=== PATIENT | female | born 1975 | race Caucasian/White ===

== ENCOUNTER → 2016-11-09 | Outpatient (CLI) | payer OTHER ==
[~2016-11-09] MED LIST: PRENTAB26 PO; SYN100 PO
--- NOTE | 2016-11-10 12:42 | MAMMOGRAPHY REPORT ---
BILATERAL DIGITAL SCREENING MAMMOGRAM TOMOSYNTHESIS WITH CAD: 11/09/2016 CLINICAL HISTORY: Routine screening examination. TECHNIQUE: Breast tomosynthesis in addition to standard 2D mammography was performed. Current study was also evaluated with a Computer Aided Detection (CAD) system. COMPARISON: Comparison is made to exams dated: 11/05/2015 mammogram, 11/13/2015 ultrasound, 11/13/2015 mammogram, and 05/17/2016 mammogram - [facility]. BREAST COMPOSITION: There are scattered areas of fibroglandular density in both breasts. FINDINGS: There is stable asymmetry in the medial right breast. No new suspicious mass, architectur al distortion or cluster of microcalcifications is seen. IMPRESSION: ACR BI-RADS CATEGORY 1: NEGATIVE There is no mammographic evidence of malignancy. A 1 year screening mammogram is recommended. The p atient will receive written notification of the results. Approximately 10% of breast cancers are not detected with mammography. A negative mammographic repor t should not delay biopsy if a clinically suggestive mass is present. Malena Richards M.D. ay/:11/09/2016 19:02:14 Slot Machine Repairer: Daisy ELLISON(R)(M), [facility] letter sent: Normal 1/2 BI-RADS Code: ACR BI-RADS Category 1: Negative
== END | disposition home or self-care (01) ==
LOC: C.MAMM 08:39
PROVIDERS: ATTEND Family Medicine
DX: Z12.31 Encounter for screening mammogram for malignant neoplasm of breast (principal)

== ENCOUNTER → 2017-08-05 | Outpatient (CLI) | payer OTHER ==
[2017-08-05 12:35] LABS: BLOOD UREA NITROGEN 16 mg/dl (7-18); BUN/CREATININE RATIO 22.6 (10-20); CALCIUM 8.7 mg/dl (8.5-10.1); CARBON DIOXIDE 24 mmol/L (21-32); CHLORIDE 105 mmol/L (98-107); GLUCOSE 87 mg/dl (70-99); POTASSIUM 3.6 mmol/L (3.5-5.1); SODIUM 138 mmol/L (136-145)
[2017-08-05 12:37] LABS: ESTIMATED AVERAGE GLUCOSE 100 mg/dl; HA1C FLAG Normal (Normal)
[2017-08-05 12:46] LABS: CHOLESTEROL 155 mg/dl (0-200); CHOLESTEROL/HDL RATIO 3.6; HDL CHOLESTEROL 43 mg/dl; LDL CHOLESTEROL CALCULATED 101 mg/dl; TRIGLYCERIDES 55 mg/dl (0-150); VERY LOW DENSITY LIPOPROT CALC 11 mg/dl
== END | disposition home or self-care (01) ==
LOC: C.LABBFT 08:50
PROVIDERS: ATTEND Family Medicine
DX: E03.9 Hypothyroidism, unspecified (principal); E78.1 Pure hyperglyceridemia

== ENCOUNTER → 2017-11-07 | Outpatient (CLI) | payer OTHER ==
--- NOTE | 2017-11-07 09:28 | DIAGNOSTIC IMAGING REPORT ---
L-SPINE MIN 4 VIEWS ROUTINE CLINICAL HISTORY: Left hip pain. Sacroiliac joint pain. COMPARISON: None FINDINGS: Note is made of mild rightward curvature of the lumbar spine. There is slight anterolisthesis of L4 and L5. No fracture or suspicious lesion is identified. There is mild multilevel facet arthrosis with multilevel endplate osteophytosis. There is minimal disc space narrowing at several levels. IMPRESSION: 1. No acute lumbar spine fracture or subluxation. 2. Minimal rightward curvature of the lumbar spine. 3. Mild multilevel degenerative disc disease and mild to moderate facet arthrosis of the lumbar spine. Electronically signed by: Vidal Moralez M.D. 11/07/2017 9:27 AM Dictated Date/Time: 11/07/2017 9:26 AM
--- NOTE | 2017-11-07 09:29 | DIAGNOSTIC IMAGING REPORT ---
SI JOINTS 3 OR MORE VIEWS CLINICAL HISTORY: Sacroiliac joint pain. COMPARISON STUDY: No previous studies for comparison. FINDINGS: The sacroiliac joints are intact. There is no evidence for ankylosis. No fracture or suspicious lesion is identified. There is mild osteoarthritis of the bilateral sacroiliac joints. 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 Electronically signed by: Vidal Moralez M.D. 11/07/2017 9:28 AM Dictated Date/Time: 11/07/2017 9:27 AM
--- NOTE | 2017-11-07 09:30 | DIAGNOSTIC IMAGING REPORT ---
L HIP UNILATERAL 2 VIEWS CLINICAL HISTORY: Left hip pain. COMPARISON: None FINDINGS: Alignment of the left hip is anatomic. There is no fracture or suspicious lesion. Joint space is preserved. There is mild osteophytosis of the left hip. A phlebolith within the left hemipelvis is incidentally noted. There is no evidence for avascular necrosis. IMPRESSION: 1. No acute fracture. 2. Preserved left hip joint space with minimal osteophytosis. Electronically signed by: Vidal Moralez M.D. 11/07/2017 9:29 AM Dictated Date/Time: 11/07/2017 9:28 AM
== END | disposition home or self-care (01) ==
LOC: C.RAD 08:55
PROVIDERS: ATTEND Family Medicine
DX: R26.9 Unspecified abnormalities of gait and mobility (principal); M53.3 Sacrococcygeal disorders, not elsewhere classified

== ENCOUNTER → 2017-11-11 | Outpatient (CLI) | payer OTHER ==
--- NOTE | 2017-11-14 07:33 | MAMMOGRAPHY REPORT ---
BILATERAL DIGITAL SCREENING MAMMOGRAM TOMOSYNTHESIS WITH CAD: 11/11/2017 CLINICAL HISTORY: Routine screening. Patient has no complaints. TECHNIQUE: Breast tomosynthesis in addition to standard 2D mammography was performed. Current study was also evaluated with a Computer Aided Detection (CAD) system. COMPARISON: Comparison is made to exams dated: 11/09/2016 mammogram, 05/17/2016 mammogram, 11/13/2015 m ammogram, 11/13/2015 ultrasound, and 11/05/2015 mammogram - [facility]. BREAST COMPOSITION: There are scattered areas of fibroglandular density in both breasts. FINDINGS: No suspicious masses, calcifications, or areas of architectural distortion are noted in ei ther breast. There has been no significant interval change compared to prior exams. IMPRESSION: ACR BI-RADS CATEGORY 1: NEGATIVE There is no mammographic evidence of malignancy. A 1 year screening mammogram is recommended. The pa tient will receive written notification of the results. Approximately 10% of breast cancers are not detected with mammography. A negative mammographic report should not delay biopsy if a clinically suggestive mass is present. Leonie Montes M.D. /:11/11/2017 15:21:26 Sales Record Clerk: Dian Cortes, M, [facility] letter sent: Normal 1/2 BI-RADS Code: ACR BI-RADS Category 1: Negative
== END | disposition home or self-care (01) ==
LOC: C.MAMM 08:46
PROVIDERS: ATTEND Family Medicine
DX: Z12.31 Encounter for screening mammogram for malignant neoplasm of breast (principal)

== ENCOUNTER 2020-04-15 08:16 | Observation (INO) ==
[2020-04-15] MEDS ORDERED: HYDROmorphone INJ 0.5 MG/0.5 ML SYR IV STA (08:34)
[2020-04-15] MEDS ORDERED: ONDANSETRON INJ 2 MG/ML 2 ML VIAL IV STA (08:34)
[2020-04-15] MEDS ORDERED: SODIUM CHLORIDE 0.9% 1000ML 1,000 ML IV SCH (08:45)
[2020-04-15 09:05] LABS: Hematocrit (blood only) 29.4 % (37-47); Hemoglobin 8.3 g/dL (12.0-16.0); Mean Corpuscular Hemoglobin 18.6 pg (25-34); Mean Corpuscular Hgb Conc 28.2 g/dL (32-36); Mean Corpuscular Volume 65.9 fL (80-100); Mean Platelet Volume 9.3 fL (7.4-10.4); Platelet Count 309 K/uL (130-400); RDW Coefficient of Variation 18.8 % (11.5-14.5); RDW Standard Deviation 44.5 fL (36.4-46.3); Red Blood Count 4.46 M/uL (4.2-5.4); White Blood Count 9.11 K/uL (4.8-10.8)
[2020-04-15 09:16] LABS: Anisocytosis Present; Basophils # (auto) 0.01 K/uL (0-0.2); Basophils % (auto) 0.1 %; Eosinophils # (auto) 0.01 K/uL (0-0.5); Eosinophils % (auto) 0.1 %; Hypochromasia Present; Immature Granulocytes # (auto) 0.03 K/uL (0.00-0.02); Immature Granulocytes % (auto) 0.3 %; Lymphocytes # (auto) 1.38 K/uL (1.2-3.4); Lymphocytes % (auto) 15.1 %; Microcytosis Present; Monocytes # (auto) 0.28 K/uL (0.11-0.59); Monocytes % (auto) 3.1 %; Neutrophils % (auto) 81.3 %
[2020-04-15 09:22] LABS: Albumin Level 3.8 gm/dl (3.4-5.0); BUN Creatinine Ratio 15.5 (10-20); Calcium 9.1 mg/dl (8.5-10.1); Creatinine Clr Calc Pharmacy 96.3 ml/min; Est GFR (African American) 87.8; Est GFR (Non-African American) 75.7; Potassium 3.6 mmol/L (3.5-5.1)
[2020-04-15 09:25] LABS: Bilirubin,Total 0.4 mg/dl (0.2-1); Globulin 3.9 gm/dl (2.5-4.0); Total Protein 7.7 gm/dl (6.4-8.2)
[2020-04-15 10:22] LABS: Appearance Urine Clear (Clear); Bacteria Urine Automated Negative (Negative); Bilirubin Urine Negative (Negative); Blood Urine 1+ (Negative); Color Urine Yellow; Glucose Urine UA Negative (Negative); Ketones Urine Negative (Negative); Leukocyte Esterase Urine Negative (Negative); Nitrite Urine Negative (Negative); Protein Urine Negative (Negative); RBC Urine Automated 0-4 /hpf (0-4); Urobilinogen Urine Negative (Negative); pH Urine 5.5 (4.5-7.5)
--- NOTE | 2020-04-15 10:40 | History & Physical Report ---
Date of Service April 15, 2020 Assessment & Plan (1) Hydronephrosis: Patient presented to the emergency department yesterday and was discharged home with oxycodone and instructed to increase fluids Patient presents back today with evidence of hydronephrosis Pain was rated 6 out of 10 on admission. Currently is 1 out of 10 Instructed patient to strain all urine Will place urology consult Normal saline with 20 mEq of potassium chloride at 125 ml/hr Continue oxycodone for pain (2) Nephrolithiasis: Identified with CT abdomen pelvis yesterday KUB is currently pending Strain all urine No indication for antibiotics at this time (3) Anemia: Patient had heavy menses last week Is not aware of any history of anemia No history of gastric bypass No active bleeding We will check serum iron, ferritin, transferrin, and TIBC Check repeat H&H at 4:00 this afternoon then daily CBC Start patient on multivitamin with minerals (4) Acute hypokalemia: Potassium level yesterday was 3.1 Today in the ER is 3.6 Will replete with normal saline solution with 20 mEq of potassium chloride at 125 mL/h Daily labs Check a magnesium level Patient did have some vomiting this morning but no vomiting prior and no diarrhea. (5) Bradycardia: Patient with a current rate of 60 bpm No chest pain or tightness noted that heart rate yesterday in the ED was as low as 38 No history of cardiac disease or previous bradycardia Unaware of arrhythmias or ectopy Will place on telemetry on the MedSurg unit and follow Is not on any beta-blockers or other agonist medications (6) Hypothyroidism: Continue home dose of 100 mcg daily of levothyroxine Check a TSH Continue outpatient management (7) Hyperglycemia: No history of diabetes mellitus Patient is obese with a BMI of 35.6 kg/m Random glucose yesterday was in the 140s. Today's random glucose is 119 Most recent hemoglobin A1c was July 2017 at 5.1 Check a repeat hemoglobin A1c with today's labs (8) DVT prophylaxis: No chemical DVT prophylaxis secondary to anemia and possible procedure for nephrolithiasis Ambulate as tolerated Encourage ambulation in the hallways We will order LIYA ni and SCDs History of Present Illness Primary Care Provider: Harper Tolentino MD Attending: Dr. Bari Hudson This is a 44-year-old female with a history of hypothyroidism and obesity. She presented yesterday for flank pain and was found to have microscopic hematuria as well as hydronephrosis and a distal 4 mm right-sided kidney stone. She was discharged home on oxycodone and instructed to take an additional fluids. Today she was sitting at her desk working and has sudden and acute pain. Her brought her back to the emergency department where she was found to have 6/10 pain. She denies any fever or chills. She has no macroscopic hematuria. The pain is intermittent and sharp when it occurs. This morning resulted in nausea and vomiting of what sounds like 3 to 400 mL's. There is no evidence of hematemesis and the patient had no identified aspiration. Patient states that she has no history of kidney stones in the past. Her only significant past medical history is with the hypothyroidism. The patient does follow with Dr. Tolentino of the [facility]. Of note, her states that yesterday in the emergency department she had bradycardia with a rate as low as 38 bpm. The patient has no chest pain or tightness. She has no evidence of arrhythmia or ectopy. She denies any previous history of heart disease or hypertension. She has no history of echocardiogram or other cardiac work-up. The patient has no other acute complaints. Allergies Allergy/AdvReac Type Severity Reaction Status Date / Time Sulfa (Sulfonamide Allergy Intermediate HIVES Verified 04/15/20 09:02 Antibiotics) Home Medications Home Medications Medication Instructions Recorded Confirmed Type oxycodone 5 mg PO Q4H PRN #15 tab 04/14/20 04/15/20 Rx levothyroxine 100 mcg PO QAM 04/15/20 04/15/20 History acetaminophen 650 mg PO Q4H PRN #30 tab 04/16/20 Rx tamsulosin 0.4 mg PO HS #30 cap 04/16/20 Rx Past Med/Surg History Medical History Hypothyroidism Surgical History S/P D&C (status post dilation and curettage) S/P tonsillectomy Family History Denies family history of Ovarian cancer Prostate cancer Myocardial infarction Breast cancer Colorectal cancer Social History Smoking Status: Never smoker Hx Alcohol Use: Yes Hx Substance Use: No Preferred Language: Uzbek Communication Ability: Effective Visual Impairment: No Limitations Hearing Ability: Normal Vocational Case Manager Required: No Beliefs That Will Affect Care: None marital status: Current Living Situation: Spouse current occupational status: employed current occupation: [employer] Work[employer] Other Information That Helps Us Care for You: No Feels Safe at Home: Yes Safety Concerns: Feels Safe At This Time Childhood Exposure to Second-Hand Smoke: Yes Dental Care, Regularly: No Physical Activity Frequency: Daily Seatbelt Use: always Sunscreen Use: Yes Review of Systems Review of Systems: All systems reviewed & are unremarkable except as noted in HPI & below Physical Exam Physical Exam: GENERAL : No acute distress. Pleasant. No conversational dyspnea EYES: No icterus, gaze conjugate NOSE: No evidence of epistaxis MOUTH: No lesions or candidiasis NECK: Supple LUNGS: CTA B/L, no wheezes, rales or rhonchi HEART: Regular, rate controlled ABDOMEN: Soft, ND, BS Present. Some tenderness with deep palpation on the right side and in the flank. BACK: Right-sided CVA tenderness EXTREMITIES: No LE edema, pedal pulses intact NEURO: A&OX3 Results & Data Results & Data ([facility]) Vital Signs (Past 12 Hours) Vital Signs Temp Pulse Pulse Resp BP BP Pulse Ox 04/15/20 09:58 69 18 120/67 96 04/15/20 09:00 78 18 119/83 99 04/15/20 08:27 36.9 C 86 16 151/89 H 100 Laboratory Results 04/15/20 08:40 04/15/20 08:40 Diagnostic Findings KUB CLINICAL HISTORY: Right side stone COMPARISON STUDY: CT of the abdomen and pelvis April 14, 2020. FINDINGS: A 3 mm x 2 mm right ureterovesical junction calculus is unchanged in position since CT of April 14, 2020. No additional urinary calculi identified. IMPRESSION: No change in position of a 3 mm x 2 mm right ureterovesical junction calculus. ACT 112: Negative or not required by law. Electronically signed by: Vidal Moralez M.D. 04/15/2020 10:37 AM Code Status & VTE Plan Code Status Level 1 full code VTE Prophylaxis Plan VTE Prophylaxis will be ordered: Yes Supervising Physician Co-Signing Physician Notes I personally saw and examined the patient. I verified all ontiveros points and agree with LUCIA Calderon with the following exceptions and/or additions: 44-year-old female presents to the ER due to worsening right-sided flank pain with associated nausea and vomiting after recent diagnosis of right-sided kidney stone yesterday. O/E -right CVA tenderness, not pale appearing, conjunctiva does not appear pale, cap refill normal Right ureterolithiasis -appreciate urology consult, start tamsulosin, IV fluids, strain urine, n.p.o. after midnight for possible procedure tomorrow if stone not passed Microcytic anemia -suspect this is longstanding due to heavy periods. Recommend gynecology follow-up (she was already in the process of doing this). Does not appear to be symptomatic from this - therefore would not recommend blood transfusion. unless Hgb < 7. Given option of intravenous Venofer versus oral supplementation. Patient elected for oral supplementation. Discussed side effects of constipation. Will need follow-up with PCP for repeat CBC in approximately 4 weeks (sooner if short of breath, chest pain, fatigue). PG Care Time/CCT Total # of Minutes Spent Total Time Spent with Patient: Total time spent is greater than 50% in coordination of care (as documented) at patient's floor/unit and/or counseling patient: 65 minutes including discussion with Coding Level of Care Code 96687 Initial Inpt Care Lvl 3 Diagnoses Hydronephrosis Q62.11 Hydronephrosis type: with ureteropelvic junction obstruction Nephrolithiasis N20.0 Anemia D64.9 Anemia type: unspecified type Acute hypokalemia E87.6 Bradycardia R00.1 Hypothyroidism E03.9 Hypothyroidism type: acquired Hyperglycemia R73.9 DVT prophylaxis Z29.9 Time Spent (min) 65 (1) Hydronephrosis Hydronephrosis type: with ureteropelvic junction obstruction Qualified Code(s): Q62.11 - Congenital occlusion of ureteropelvic junction (2) Anemia Anemia type: unspecified type Qualified Code(s): D64.9 - Anemia, unspecified (3) Hypothyroidism Hypothyroidism type: acquired Qualified Code(s): E03.9 - Hypothyroidism, unspecified
[2020-04-15] MEDS ORDERED: ALUMINUM/MAGNESIUM SUSP 30 ML UDC PO PRN (11:37)
[2020-04-15] MEDS ORDERED: ONDANSETRON INJ 2 MG/ML 2 ML VIAL IV PRN (11:37)
[2020-04-15] MEDS ORDERED: OXYCODONE HCL IR 5 MG TAB (IMMEDIATE RELEASE) PO PRN (11:37)
[2020-04-15] MEDS ORDERED: POLYETHYLENE (MIRALAX) 17 GM PACK PO PRN (11:37)
[2020-04-15] MEDS ORDERED: MAGNESIUM HYDROXIDE SUSP 30 ML UDC PO PRN (11:37)
[2020-04-15] MEDS ORDERED: ACETAMINOPHEN 325 MG TAB PO PRN (11:37)
[2020-04-15] MEDS: NSS + 20MEQ KCL 20 MEQ/1,000 ML BAG IV SCH ×2 (12:28→20:37)
[2020-04-15] MEDS: FLINTSTONES COMPLETE CHEWABLE TAB PO SCH (12:28)
[2020-04-15 12:38] LABS: Estimated Average Glucose 114 mg/dl; Ferritin 2.3 ng/ml (8-388); Hemoglobin A1C 5.6 % (4.5-5.6); Magnesium 2.1 mg/dl (1.8-2.4); Thyroid Stimulating Hormone 3.4 uIu/ml (0.300-4.500)
[2020-04-15 12:58] LABS: INR 1.1 (0.9-1.1); Prothrombin Time 11.3 Seconds (9.0-12.0)
--- NOTE | 2020-04-15 16:41 | Emergency Department Note ---
History of Present Illness General Chief complaint: Flank Pain Stated complaint: KIDNEY FLANK PAIN Time Seen by Provider: 04/15/20 08:25 History of Present Illness Maximum Pain Intensity: 3 This is a 44-year-old female presenting to the emergency department for evaluation of ongoing right-sided flank pain. The patient was seen roughly 20 hours ago at this facility with this complaint. At that visit she was found to have an obstructing distal right ureteral calculi as well as nonspecific anemia. The patient was given pain medication here in the ER at her last visit, which significantly improved her pain, and she did want to go home on oral meds. She states that around 3 hours prior to arrival today she had a return of her intense pain. She did take her pain medication, but this has not provided her any relief. According to the nurse she was vomiting in triage before getting to her ER room. Her pain was a 9/10 earlier this morning, but it is now a 3/10. She has not had fevers or chills. Home Medications Home Medications Medication Instructions Recorded Confirmed Type oxycodone 5 mg PO Q4H PRN #15 tab 04/14/20 04/15/20 Rx levothyroxine 100 mcg PO QAM 04/15/20 04/15/20 History Allergies Allergy/AdvReac Type Severity Reaction Status Date / Time Sulfa (Sulfonamide Allergy Intermediate HIVES Verified 04/15/20 09:02 Antibiotics) Past Med/Surg History Medical History Hypothyroidism Surgical History S/P D&C (status post dilation and curettage) S/P tonsillectomy Family History Denies family history of Ovarian cancer Prostate cancer Myocardial infarction Breast cancer Colorectal cancer Social History Smoking Status: Never smoker Hx Alcohol Use: Yes Hx Substance Use: No Preferred Language: Surinamese Communication Ability: Effective Visual Impairment: No Limitations Hearing Ability: Normal 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 Beliefs That Will Affect Care: None marital status: Current Living Situation: Spouse current occupational status: employed 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 Other Information That Helps Us Care for You: No Feels Safe at Home: Yes Safety Concerns: Feels Safe At This Time Childhood Exposure to Second-Hand Smoke: Yes Dental Care, Regularly: No Physical Activity Frequency: Daily Seatbelt Use: always Sunscreen Use: Yes Review of Systems A total of 10 systems reviewed and were otherwise negative Physical Exam Vital Signs Vital Signs - 24 hr 04/15/20 08:27 04/15/20 09:00 04/15/20 09:58 Temperature 36.9 C Temperature Source Oral Pulse Rate 86 Pulse Rate [Left Finger] 78 69 Respiratory Rate 16 18 18 Respiratory Effort / Characteristics Non-Labored Respiratory Depth Normal Blood Pressure 151/89 H Blood Pressure [Left Arm] 119/83 120/67 Blood Pressure Mean 109 Blood Pressure Mean [Left Arm] 95 84 Pulse Oximetry 100 99 96 Oxygen Delivery Method Room Air Room Air Sepsis Recent Fever Within 48 Hours No Sepsis New/Unexplained Change in Mental Status N/A Sepsis Action Taken by Nursing No Action Required VITALS: Vitals are noted on the nurse's note and reviewed by myself. Vital signs stable. GENERAL: Well-developed, well-nourished, white female who appears in moderate discomfort HEAD: Normocephalic atraumatic. HEART: Regular rate and rhythm without murmurs gallops or rubs. LUNGS: Clear to auscultation bilaterally without wheezes, rales or rhonchi. No retractions or accessory muscle use. ABDOMEN: Positive normal bowel sounds x 4. Soft, nontender, without masses or organomegaly. No guarding or rebound tenderness. MUSCULOSKELETAL: No muscle atrophy, erythema, or edema noted. . NEURO: Patient was alert and oriented to person place and time. CN II through XII grossly intact. SKIN: The skin was without rashes, erythema, edema, or bruising. Capillary refill less than 2 seconds. Course Administered Medications Potassium Chloride/Sodium Chloride (Normal Saline W/20 Meq Kcl) 20 meq in 1,000 mls @ 125 mls/hr IV .Q8H [facility] Stop: 05/15/20 11:36 Last Admin: 04/15/20 12:28 Dose: 125 mls/hr Documented by: [id number] Multivitamins/Folic Acid/Vitamin C (Flintstones Complete Chewable Tab) 1 tab PO QAM DAPHNIE Stop: 05/15/20 11:36 Last Admin: 04/15/20 12:28 Dose: 1 tab Documented by: [id number] Discontinued Medications Hydromorphone HCl (Hydromorphone Inj 0.5 Mg/0.5 Ml Syr) 0.5 mg IV NOW STA Stop: 04/15/20 08:35 Last Admin: 04/15/20 08:41 Dose: 0.5 mg Documented by: [id number] Sodium Chloride (Nss 1000ml) 1,000 mls @ 999 mls/hr IV .Q1H1M DAPHNIE Stop: 04/15/20 09:45 Last Infusion: 04/15/20 09:49 Dose: 0 mls/hr Documented by: [id number] Admin: 04/15/20 08:41 Dose: 999 mls/hr Documented by: [id number] Ondansetron HCl (Ondansetron Inj 2 Mg/Ml 2 Ml Vial) 4 mg IV NOW STA Stop: 04/15/20 08:35 Last Admin: 04/15/20 08:41 Dose: 4 mg Documented by: [id number] Medical Decision Making Differential Diagnosis Differential diagnosis: Etiologies such as shingles, pyelonephritis/UTI, renal colic, appendicitis, diverticulitis, mesenteric ischemia, torsion, aortic pathology, infections, inflammatory bowel disease, bowel obstruction, PUD, biliary pathology, as well as others were entertained. Laboratory Data Result diagrams: 04/15/20 08:40 04/15/20 08:40 Lab Results 04/15/20 04/15/20 04/15/20 Range/Units 08:40 08:40 08:40 WBC 9.11 (4.8-10.8) K/uL RBC 4.46 (4.2-5.4) M/uL Hgb 8.3 L (12.0-16.0) g/dL Hct 29.4 L (37-47) % MCV 65.9 L (80-100) fL MCH 18.6 L (25-34) pg MCHC 28.2 L (32-36) g/dL RDW Std Deviation 44.5 (36.4-46.3) fL RDW Coeff of Delta 18.8 H (11.5-14.5) % Plt Count 309 (130-400) K/uL MPV 9.3 (7.4-10.4) fL Immature Gran % (Auto) 0.3 % Neut % (Auto) 81.3 % Lymph % (Auto) 15.1 % [place] % (Auto) 3.1 % Eos % (Auto) 0.1 % Baso % (Auto) 0.1 % Neut # (Auto) 7.40 H (1.4-6.5) K/uL Lymph # (Auto) 1.38 (1.2-3.4) K/uL [place] # (Auto) 0.28 (0.11-0.59) K/uL Eos # (Auto) 0.01 (0-0.5) K/uL Baso # (Auto) 0.01 (0-0.2) K/uL Immature Gran # (Auto) 0.03 H (0.00-0.02) K/uL Hypochromasia Present Anisocytosis Present Microcytosis Present Sodium 140 (136-145) mmol/L Potassium 3.6 D (3.5-5.1) mmol/L Chloride 109 H (98-107) mmol/L Carbon Dioxide 23 (21-32) mmol/L Anion Gap 9.0 (3-11) BUN 14 (7-18) mg/dl Creatinine 0.92 (0.6-1.2) mg/dl Est Cr Clr Drug Dosing 96.3 ml/min Est GFR ( Amer) 87.8 Est GFR (Non-Af Amer) 75.7 BUN/Creatinine Ratio 15.5 (10-20) Glucose 119 H (70-99) mg/dl Estimat Average Glucose 114 mg/dl Hemoglobin A1c 5.6 (4.5-5.6) % Calcium 9.1 (8.5-10.1) mg/dl Magnesium (1.8-2.4) mg/dl Iron (35-150) mcg/dl TIBC (250-450) mcg/dl Transferrin (200-360) mg/dl Ferritin (8-388) ng/ml Total Bilirubin 0.4 (0.2-1) mg/dl AST 14 L (15-37) U/L ALT 17 (12-78) U/L Alkaline Phosphatase 85 (45-117) U/L Total Protein 7.7 (6.4-8.2) gm/dl Albumin 3.8 (3.4-5.0) gm/dl Globulin 3.9 (2.5-4.0) gm/dl Albumin/Globulin Ratio 1.0 (0.9-2) TSH (0.300-4.500) uIu/ml Urine Color Urine Appearance (Clear) Urine pH (4.5-7.5) Ur Specific [place] (1.000-1.030) Urine Protein (Negative) Urine Glucose (UA) (Negative) Urine Ketones (Negative) Urine Blood (Negative) Urine Nitrite (Negative) Urine Bilirubin (Negative) Urine Urobilinogen (Negative) Ur Leukocyte Esterase (Negative) Urine WBC (Auto) (0-5) /hpf Urine RBC (Auto) (0-4) /hpf U Hyaline Cast (Auto) (0-5) /lpf U Epithel Cells (Auto) (0-5) /lpf Urine Bacteria (Auto) (Negative) 04/15/20 04/15/20 Range/Units 08:40 09:30 WBC (4.8-10.8) K/uL RBC (4.2-5.4) M/uL Hgb (12.0-16.0) g/dL Hct (37-47) % MCV (80-100) fL MCH (25-34) pg MCHC (32-36) g/dL RDW Std Deviation (36.4-46.3) fL RDW Coeff of Delta (11.5-14.5) % Plt Count (130-400) K/uL MPV (7.4-10.4) fL Immature Gran % (Auto) % Neut % (Auto) % Lymph % (Auto) % [place] % (Auto) % Eos % (Auto) % Baso % (Auto) % Neut # (Auto) (1.4-6.5) K/uL Lymph # (Auto) (1.2-3.4) K/uL [place] # (Auto) (0.11-0.59) K/uL Eos # (Auto) (0-0.5) K/uL Baso # (Auto) (0-0.2) K/uL Immature Gran # (Auto) (0.00-0.02) K/uL Hypochromasia Anisocytosis Microcytosis Sodium (136-145) mmol/L Potassium (3.5-5.1) mmol/L Chloride (98-107) mmol/L Carbon Dioxide (21-32) mmol/L Anion Gap (3-11) BUN (7-18) mg/dl Creatinine (0.6-1.2) mg/dl Est Cr Clr Drug Dosing ml/min Est GFR ( Amer) Est GFR (Non-Af Amer) BUN/Creatinine Ratio (10-20) Glucose (70-99) mg/dl Estimat Average Glucose mg/dl Hemoglobin A1c (4.5-5.6) % Calcium (8.5-10.1) mg/dl Magnesium 2.1 (1.8-2.4) mg/dl Iron 13 L (35-150) mcg/dl TIBC 480 H (250-450) mcg/dl Transferrin 373 H (200-360) mg/dl Ferritin 2.3 L (8-388) ng/ml Total Bilirubin (0.2-1) mg/dl AST (15-37) U/L ALT (12-78) U/L Alkaline Phosphatase (45-117) U/L Total Protein (6.4-8.2) gm/dl Albumin (3.4-5.0) gm/dl Globulin (2.5-4.0) gm/dl Albumin/Globulin Ratio (0.9-2) TSH 3.400 (0.300-4.500) uIu/ml Urine Color Yellow Urine Appearance Clear (Clear) Urine pH 5.5 (4.5-7.5) Ur Specific [place] 1.010 (1.000-1.030) Urine Protein Negative (Negative) Urine Glucose (UA) Negative (Negative) Urine Ketones Negative (Negative) Urine Blood 1+ H (Negative) Urine Nitrite Negative (Negative) Urine Bilirubin Negative (Negative) Urine Urobilinogen Negative (Negative) Ur Leukocyte Esterase Negative (Negative) Urine WBC (Auto) 1-5 (0-5) /hpf Urine RBC (Auto) 0-4 (0-4) /hpf U Hyaline Cast (Auto) 1-5 (0-5) /lpf U Epithel Cells (Auto) 10-20 H (0-5) /lpf Urine Bacteria (Auto) Negative (Negative) Imaging Data Radiologist's Impression: KUB CLINICAL HISTORY: Right side stone COMPARISON STUDY: CT of the abdomen and pelvis April 14, 2020. FINDINGS: A 3 mm x 2 mm right ureterovesical junction calculus is unchanged in position since CT of April 14, 2020. No additional urinary calculi identified. IMPRESSION: No change in position of a 3 mm x 2 mm right ureterovesical junction calculus. MDM Narrative Physical exam and history were performed. Nursing notes, EMR, and Medication List were personally reviewed. Patient appears to have return of her right flank pain in the context of a known kidney stone. IV access was established and labs were obtained. She was hydra lo with normal saline and given IV Dilaudid and IV Zofran for comfort. KUB was performed. Patient does not have a significantly elevated white blood cell count. She remains anemic, and her indices may suggest iron deficiency or other similar process. She evidently does eat meat, but very infrequently. Lipase and transaminases are not diagnostic. KUB was performed and reviewed by myself and radiology. KUB shows no change in the position of her stone. Overall the patient does not seem well for discharge home. She does have a distal stone that was obstructing on CT yesterday. She did attempt at home treatment, but this does not seem to have done well for her. The case was discussed with the on-call hospitalist team who agreed to evaluate her here in the ER. Please see their dictation for further patient course, plan, and disposition. The chart was completed utilizing [employer] Speech Voice Recognition Software. Grammatical errors, random word insertions, pronoun errors, and incomplete sentences are an occasional consequence of this system due to software limitations, ambient noise, and hardware issues. Any formal questions or concerns about the content, text, or information contained within the body of this dictation should be directly addressed to the provider for clarification. . Impression & Plan Right distal ureteral calculus, Anemia Discharge Plan Visit Data Chief Complaint: Flank Pain Stated Complaint: KIDNEY FLANK PAIN ED Provider: Johnathan Hernandez ED Midlevel Provider: Azeem Pradhan Discharge Problem: Right distal ureteral calculus, Anemia Patient Disposition: Admitted As Inpatient Discharge Instructions Interventions: ED Discharge Assessment Last Done: 04/15/20 11:17
[2020-04-15 17:20] LABS: Hematocrit (blood only) 26.3 % (37-47); Hemoglobin 7.5 g/dL (12.0-16.0)
--- NOTE | 2020-04-15 18:05 | Urology Consultation ---
Date of Consultation April 15, 2020 Assessment & Plan (1) Nephrolithiasis: Assessment Renal colic secondary to a 2.5 to 3 mm right ureterovesical junction stone Currently patient's pain is controlled she has no fever or chills no signs of sepsis Stone is small enough that that there is a high likelihood she will pass it on her own Continue with IV hydration pain medication as needed Check KUB in the morning We will make n.p.o. after midnight in case the stone needs to be removed Does understand if she gets a fever or chills or any signs of sepsis she would need emergent stenting tonight. History of Present Illness Attending Physician: Bari Hudson MD History of Present Illness Is a 44-year-old white female admitted through the emergency room with right renal colic secondary to a 2.5 to 3 mm right ureterovesical junction stone. She is had no fevers or chills. She did have some nausea and vomiting while in the ER that has subsided. She was able to tolerate dinner tonight. Currently her pain is controlled. Allergies Allergy/AdvReac Type Severity Reaction Status Date / Time Sulfa (Sulfonamide Allergy Intermediate HIVES Verified 04/15/20 09:02 Antibiotics) Home Medications Home Medications Medication Instructions Recorded Confirmed Type oxycodone 5 mg PO Q4H PRN #15 tab 04/14/20 04/15/20 Rx levothyroxine 100 mcg PO QAM 04/15/20 04/15/20 History Patient History Medical History Hypothyroidism Surgical History S/P D&C (status post dilation and curettage) S/P tonsillectomy Family History Denies family history of Ovarian cancer Prostate cancer Myocardial infarction Breast cancer Colorectal cancer Social History Smoking Status: Never smoker Hx Alcohol Use: Yes Hx Substance Use: No Preferred Language: Welsh Communication Ability: Effective Visual Impairment: No Limitations Hearing Ability: Normal 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 Beliefs That Will Affect Care: None marital status: Current Living Situation: Spouse current occupational status: employed 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 Other Information That Helps Us Care for You: No Feels Safe at Home: Yes Safety Concerns: Feels Safe At This Time Childhood Exposure to Second-Hand Smoke: Yes Dental Care, Regularly: No Physical Activity Frequency: Daily Seatbelt Use: always Sunscreen Use: Yes Physical Exam Physical Exam: Constitutional Well-developed well-nourished In no acute distress, Healthy appearing Neuro/psych Alert and oriented x3 Normal mood Normal affect Normal coordination Skin Normal color Normal turgor No rashes Warm and Dry Neck Normal visual inspection Pulmonary Clear to auscultation Normal rhythm and effort No respiratory distress No audible wheezes Able to speak in complete sentences Cardiac Rate and rhythm No peripheral edema Results & Data ([facility]) Vital Signs (Past 12 Hours) Vital Signs Temp Pulse Pulse Resp BP BP BP 04/15/20 15:46 36.9 C 54 L 20 124/81 04/15/20 15:00 107 H 04/15/20 11:37 36.7 C 78 16 124/70 04/15/20 11:09 71 16 122/74 04/15/20 09:58 69 18 120/67 04/15/20 09:00 78 18 119/83 04/15/20 08:27 36.9 C 86 16 151/89 H Pulse Ox 04/15/20 15:46 95 04/15/20 15:00 04/15/20 11:37 99 04/15/20 11:09 97 04/15/20 09:58 96 04/15/20 09:00 99 04/15/20 08:27 100 PG Care Time/CCT Total # of Minutes Spent Total Time Spent with Patient: Total time spent is greater than 50% in coordin ation of care (as documented) at patient's floor/unit and/or counseling patient: Coding Level of Care Code 27788 Inpt Consult Level 3 Diagnoses Nephrolithiasis N20.0
[2020-04-15] MEDS ORDERED: TAMSULOSIN HCL 0.4 MG CAP PO SCH (21:00)
[2020-04-16] MEDS: NSS + 20MEQ KCL 20 MEQ/1,000 ML BAG IV SCH (04:28)
--- NOTE | 2020-04-16 05:52 | Electrocardiogram Report ---
Test Reason : Blood Pressure : / mmHG Vent. Rate : 064 BPM Atrial Rate : 064 BPM P-R Int : 158 ms QRS Dur : 090 ms QT Int : 444 ms P-R-T Axes : 038 002 022 degrees QTc Int : 458 ms Sinus rhythm with marked sinus arrhythmia Low voltage QRS Borderline ECG No previous ECGs available Confirmed by Kirt Zuniga ([id number]) on 04/16/2020 5:52:33 AM Referred By: REFERRED SELF Confirmed By:Kirt Zuniga
[2020-04-16] MEDS ORDERED: LEVOTHYROXINE SODIUM 100 MCG TABLET PO SCH (06:30)
[2020-04-16] MEDS: FLINTSTONES COMPLETE CHEWABLE TAB PO SCH (07:15)
[2020-04-16 07:25] LABS: Hematocrit (blood only) 27.4 % (37-47); Hemoglobin 7.7 g/dL (12.0-16.0); Mean Corpuscular Hemoglobin 18.7 pg (25-34); Mean Corpuscular Hgb Conc 28.1 g/dL (32-36); Mean Corpuscular Volume 66.5 fL (80-100); Mean Platelet Volume 9.1 fL (7.4-10.4); Platelet Count 290 K/uL (130-400); RDW Coefficient of Variation 18.9 % (11.5-14.5); RDW Standard Deviation 45.5 fL (36.4-46.3); Red Blood Count 4.12 M/uL (4.2-5.4)
[2020-04-16 07:58] LABS: BUN Creatinine Ratio 11.7 (10-20); Calcium 8.5 mg/dl (8.5-10.1); Creatinine Clr Calc Pharmacy 124.2 ml/min; Est GFR (Non-African American) 101.9; Potassium 3.6 mmol/L (3.5-5.1)
[2020-04-16] MEDS ORDERED: FERROUS SULFATE 325 MG TAB PO SCH (08:00)
[2020-04-16 08:01] LABS: Basophils # (auto) 0.02 K/uL (0-0.2); Basophils % (auto) 0.3 %; Eosinophils # (auto) 0.09 K/uL (0-0.5); Eosinophils % (auto) 1.3 %; Hypochromasia Present; Immature Granulocytes # (auto) 0.02 K/uL (0.00-0.02); Immature Granulocytes % (auto) 0.3 %; Lymphocytes # (auto) 2.75 K/uL (1.2-3.4); Lymphocytes % (auto) 38.7 %; Microcytosis Present; Monocytes # (auto) 0.37 K/uL (0.11-0.59); Monocytes % (auto) 5.2 %; Neutrophils # (auto) 3.85 K/uL (1.4-6.5); Neutrophils % (auto) 54.2 %
--- NOTE | 2020-04-16 09:50 | Urology Progress Note ---
Date of Service April 16, 2020 Assessment & Plan Admission and Anticipated Discharge Date Admission Date: April 15, 2020 Subjective Hospital day #1 patient's afebrile vital signs are stable she is no longer having any flank pain she tells me that she only had 1 dose of pain medication when she came to the ER yesterday and has not had any since. The flank pain she was experiencing in the ER has subsided. She was having some crampy type feelings in the bladder area that is also subsided she is been voiding without problem she has not caught the stone yet I reviewed her KUB from today it is questionable whether the stone is still there Results & Data ([facility]) Vital Signs (Past 12 Hours) Vital Signs Temp Pulse Pulse Resp BP BP Pulse Ox 04/16/20 07:36 37.1 C 85 22 136/79 96 04/16/20 03:48 37 C 88 20 114/71 96 04/15/20 23:00 36.7 C 82 18 125/84 97 04/15/20 22:20 81 PG Care Time/CCT Total # of Minutes Spent Total Time Spent with Patient: Total time spent is greater than 50% in coordination of care (as documented) at patient's floor/unit and/or counseling patient: Coding
--- NOTE | 2020-04-16 09:55 | Urology Progress Note ---
Date of Service April 16, 2020 Assessment & Plan Admission and Anticipated Discharge Date Admission Date: April 15, 2020 Assessment distal right ureteral calculus Discussed options including Trial of passage Ureteroscopy laser lithotripsy stent Patient really does not want to have surgery if she does not need it stone is small enough to pass on its own and she is no longer having any pain and she has had no fevers chills or signs of sepsis At this point I think she can try passing the stone on her own She should strain her urine at home Take her pain medication as needed Follow-up in our office in a week with another KUB unless she catches the stone Subjective Hospital day #1 right renal colic Patient is afebrile vital signs are stable She is no longer having any flank pain She tells me she only took 1 dose of pain medication while in the ER yesterday and has had none since She was having some crampiness in the bladder area but that is also subsided She is had no nausea or vomiting White count is 7 creatinine is 0.7 KUB from today not 100% sure that I still see the stone has not caught anything yet The stone is small enough to pass on its own Physical Exam Physical Exam: CONSTITUTIONAL Well-developed well-nourished female in no acute distress NEURO/PSYCH Alert and oriented Normal mood and affect Normal coordination SKIN Normal color and turgor No rashes NECK Normal visual inspection PULMONARY Normal rhythm and effort No respiratory distress CARDIAC No peripheral edema LYMPHATIC Femoral and inguinal lymph nodes not palpable ABDOMEN Soft nontender No hepatosplenomegaly No masses No hernias Results & Data ([facility]) Vital Signs (Past 12 Hours) Vital Signs Temp Pulse Pulse Resp BP BP Pulse Ox 04/16/20 07:36 37.1 C 85 22 136/79 96 04/16/20 03:48 37 C 88 20 114/71 96 04/15/20 23:00 36.7 C 82 18 125/84 97 04/15/20 22:20 81 PG Care Time/CCT Total # of Minutes Spent Total Time Spent with Patient: Total time spent is greater than 50% in coordination of care (as documented) at patient's floor/unit and/or counseling patient: Coding Level of Care Code 01725 Subseq Hosp Care Lvl 2
--- NOTE | 2020-04-16 12:45 | XRay Report ---
KUB CLINICAL HISTORY: Right ureteral stone. FINDINGS: 2 AP supine abdominal radiographs are compared to study dated 04/15/2020 and correlated with abdominal CT dated 04/14/2020. There is a nonobstructed abdominal bowel gas pattern. Moderate fecal re tention is noted in the right colon. A 3 mm calculus at the right vesicoureteral junction is unchange d in position from yesterday. A phlebolith is noted in left hemipelvis. No additional calcifications are seen projecting over either kidney. The bony structures appear intact. IMPRESSION: Unchanged appearance of a 3 mm calculus at the right vesicoureteral junction as compared to yesterday. Electronically signed by: Matias Klein M.D. 04/16/2020 12:44 PM
--- NOTE | 2020-04-17 10:27 | Discharge Summary ---
Date of Service April 16, 2020 Admission HPI Per Admitting Provider Attending: Dr. Bari Hudson This is a 44-year-old female with a history of hypothyroidism and obesity. She presented yesterday for flank pain and was found to have microscopic hematuria as well as hydronephrosis and a distal 4 mm right-sided kidney stone. She was discharged home on oxycodone and instructed to take an additional fluids. Today she was sitting at her desk working and has sudden and acute pain. Her brought her back to the emergency department where she was found to have 6/10 pain. She denies any fever or chills. She has no macroscopic hematuria. The pain is intermittent and sharp when it occurs. This morning resulted in nausea and vomiting of what sounds like 3 to 400 mL's. There is no evidence of hematemesis and the patient had no identified aspiration. Patient states that she has no history of kidney stones in the past. Her only significant past medical history is with the hypothyroidism. The patient does follow with [place]. Tolent[place] [facility] [place] Of note, her states that yesterday in the emergency department she had bradycardia with a rate as low as 38 bpm. The patient has no chest pain or tightness. She has no evidence of arrhythmia or ectopy. She denies any previous history of heart disease or hypertension. She has no history of echocardiogram or other cardiac work-up. The patient has no other acute complaints. Principal Diagnosis nephrolithiasis Discharge Exam GENERAL : No acute distress. Pleasant. No conversational dyspnea EYES: No icterus, gaze conjugate NOSE: No evidence of epistaxis MOUTH: No lesions or candidiasis NECK: Supple LUNGS: CTA B/L, no wheezes, rales or rhonchi HEART: Regular, rate controlled ABDOMEN: Soft, ND, BS Present. No CVA tenderness BACK: Right-sided CVA tenderness EXTREMITIES: No LE edema, pedal pulses intact NEURO: A&OX3 Discharge Data Allergies Allergy/AdvReac Type Severity Reaction Status Date / Time Sulfa (Sulfonamide Allergy Intermediate HIVES Verified 04/17/20 08:45 Antibiotics) Consultations 04/15/20 09:01 ED Decision to Admit Stat 04/15/20 11:37 Consult Urology Routine Hospital Course (1) Hydronephrosis: Patient presented to the emergency department yesterday and was discharged home with oxycodone and instructed to increase fluids Patient presents back today with evidence of hydronephrosis Pain was rated 6 out of 10 on admission. Currently is 1 out of 10 Instructed patient to strain all urine Appreciate assessment from Urology: distal right ureteral calculus Discussed options including Trial of passage Ureteroscopy laser lithotripsy stent Patient really does not want to have surgery if she does not need it stone is small enough to pass on its own and she is no longer having any pain and she has had no fevers chills or signs of sepsis At this point I think she can try passing the stone on her own She should strain her urine at home Take her pain medication as needed Follow-up in our office in a week with another KUB unless she catches the stone (2) Nephrolithiasis: Identified with CT abdomen pelvis yesterday Strain all urine No indication for antibiotics at this time (3) Anemia: Patient had heavy menses last week Is not aware of any history of anemia No history of gastric bypass No active bleeding We will check serum iron, ferritin, transferrin, and TIBC Check repeat H&H at 4:00 this afternoon then daily CBC Start patient on multivitamin with minerals (4) Acute hypokalemia: resolved. (5) Bradycardia: Patient with a current rate of 60 bpm No chest pain or tightness noted that heart rate yesterday in the ED was as low as 38 No history of cardiac disease or previous bradycardia Unaware of arrhythmias or ectopy Will place on telemetry on the MedSurg unit and follow Is not on any beta-blockers or other agonist medications (6) Hypothyroidism: Continue home dose of 100 mcg daily of levothyroxine Check a TSH Continue outpatient management (7) Hyperglycemia: No history of diabetes mellitus Patient is obese with a BMI of 35.6 kg/m Random glucose yesterday was in the 140s. Today's random glucose is 119 Most recent hemoglobin A1c was July 2017 at 5.1 Check a repeat hemoglobin A1c with today's labs (8) DVT prophylaxis: No chemical DVT prophylaxis secondary to anemia and possible procedure for nephrolithiasis Ambulate as tolerated Encourage ambulation in the hallways (2) Nephrolithiasis: (3) Anemia: (4) Acute hypokalemia: (5) Bradycardia: (6) Hypothyroidism: (7) Hyperglycemia: (8) DVT prophylaxis: Total Time Total Time Spent Total Time Spent (In Minutes): 32 Total Time Includes: Examination of the Patient, Discharge Planning and Medication Reconciliation Discharge Plan Discharge Items Patient Disposition: Home - Self-Care Reason For Visit: RT HYDRONEPHROSIS Discharge Diagnosis: kidney stone Activity: Resume your previous activity Non-emergency contact: Primary Care Provider Call non-emergency contact if: you have any medication questions Follow-up/Referrals: Raul Collins MD [Physician] - (The office will call you and let you know when you have a follow up appt) Harper Tolentino MD [Primary Care Provider] - (Please call and schedule a follow up appt within 7-10 days) Diet: Regular Addtl Attending Provider Instructions: At this point I think she can try passing the stone on her own She should strain her urine at home Take her pain medication as needed Follow-up in Urology office in a week with another KUB unless she catches the stone Pending Studies at Discharge: No Stand-Alone Forms: My [employer], Smoking Cessation Medications and DC Order Prescriptions: Continued levothyroxine 100 mcg tablet 100 mcg PO QAM RF: 0 No Action acetaminophen [Tylenol Extra Strength] 500 mg Tablet 1,000 mg PO QID PRN (Reason: Pain) RF: 0 ferrous sulfate 325 mg (65 mg iron) Tablet,Delayed Release (Dr/Ec) 325 mg PO BIDM Qty: 30 RF: 0 Discharge Orders: Discharge Order (Routine); Ordered 04/16/20 Ordered By: Luis M De La Torre Admission Data Admit Date/Time: 04/15/20 10:49 Attending Provider: Luis M De La Torre Admit Provider: Bari Hudson Primary Care Provider: Harper Tolentino Other Providers: Raymon Martin ; Raul Collins Other Interventions: Discharge Summary Assessment (RN) Last Done: 04/16/20 11:35 Coding Level of Care Code 21076 OBS Care - Discharge Diagnoses Hydronephrosis Q62.11 Hydronephrosis type: with ureteropelvic junction obstruction Nephrolithiasis N20.0 Anemia D64.9 Acute hypokalemia E87.6 Bradycardia R00.1 Hypothyroidism E03.9 Hypothyroidism type: acquired Hyperglycemia R73.9 DVT prophylaxis Z29.9
--- NOTE | 2020-04-18 05:58 | Electrocardiogram Report ---
Test Reason : Blood Pressure : / mmHG Vent. Rate : 083 BPM Atrial Rate : 083 BPM P-R Int : 164 ms QRS Dur : 082 ms QT Int : 374 ms P-R-T Axes : 037 -05 024 degrees QTc Int : 439 ms Normal sinus rhythm with sinus arrhythmia Anterolateral infarct , age undetermined Nonspecific T wave abnormality Abnormal ECG When compared with ECG of 15-APR-2020 11:52, Anterior infarct is now Present Anterolateral infarct is now Present Nonspecific T wave abnormality now evident in Anterolateral leads Confirmed by Kirt Zuniga ([id number]) on 04/18/2020 5:57:53 AM Referred By: REFERRED SELF Confirmed By:Kirt Zuniga
== END 2020-04-16 12:24 | disposition home or self-care (01) ==
LOC: ED 08:16 → SUATTDRO 10:49 → 2N 10:49 → INTOOBSV 10:49 → 2N 11:17

== ENCOUNTER 2020-04-17 08:22 | Observation (INO) ==
[2020-04-17] MEDS ORDERED: ONDANSETRON INJ 2 MG/ML 2 ML VIAL IV STA (08:36)
[2020-04-17] MEDS ORDERED: HYDROmorphone INJ 0.5 MG/0.5 ML SYR IV STA ×2 (08:36→09:12)
[2020-04-17] MEDS ORDERED: SODIUM CHLORIDE 0.9% 1000ML 1,000 ML IV ONE (08:36)
[2020-04-17 09:06] LABS: Hematocrit (blood only) 29.1 % (37-47); Hemoglobin 8.4 g/dL (12.0-16.0); Mean Corpuscular Hemoglobin 18.9 pg (25-34); Mean Corpuscular Hgb Conc 28.9 g/dL (32-36); Mean Corpuscular Volume 65.5 fL (80-100); Mean Platelet Volume 9.2 fL (7.4-10.4); Platelet Count 319 K/uL (130-400); RDW Coefficient of Variation 18.6 % (11.5-14.5); RDW Standard Deviation 44.1 fL (36.4-46.3); Red Blood Count 4.44 M/uL (4.2-5.4); White Blood Count 10.98 K/uL (4.8-10.8)
[2020-04-17 09:19] LABS: Basophils # (auto) 0.02 K/uL (0-0.2); Basophils % (auto) 0.2 %; Eosinophils # (auto) 0.02 K/uL (0-0.5); Eosinophils % (auto) 0.2 %; Hypochromasia Present; Immature Granulocytes # (auto) 0.03 K/uL (0.00-0.02); Immature Granulocytes % (auto) 0.3 %; Lymphocytes # (auto) 1.62 K/uL (1.2-3.4); Lymphocytes % (auto) 14.8 %; Microcytosis Present; Monocytes # (auto) 0.43 K/uL (0.11-0.59); Monocytes % (auto) 3.9 %; Neutrophils # (auto) 8.86 K/uL (1.4-6.5); Neutrophils % (auto) 80.6 %; Ovalocytes 1+
[2020-04-17 09:20] LABS: BUN Creatinine Ratio 15.2 (10-20); Calcium 8.8 mg/dl (8.5-10.1); Creatinine Clr Calc Pharmacy 104.7 ml/min; Est GFR (African American) 96.6; Est GFR (Non-African American) 83.3; Potassium 3.4 mmol/L (3.5-5.1)
[2020-04-17 09:22] LABS: Bilirubin,Total 0.5 mg/dl (0.2-1); Globulin 3.9 gm/dl (2.5-4.0); Total Protein 7.9 gm/dl (6.4-8.2)
[2020-04-17 10:07] LABS: Appearance Urine Clear (Clear); Bacteria Urine Automated Negative (Negative); Bilirubin Urine Negative (Negative); Blood Urine Negative (Negative); Cast Urine Automated 0 /lpf (0-5); Color Urine Yellow; Epithelial Cell Urine Auto 20-30 /lpf (0-5); Glucose Urine UA Negative (Negative); Ketones Urine 1+ (Negative); Leukocyte Esterase Urine Trace (Negative); Nitrite Urine Negative (Negative); Protein Urine Negative (Negative); RBC Urine Automated 0-4 /hpf (0-4); Urobilinogen Urine Negative (Negative); pH Urine 8.5 (4.5-7.5)
--- NOTE | 2020-04-17 10:09 | XRay Report ---
KUB HISTORY: distal R ureteral stone, right flank pain COMPARISON: KUB 04/16/2020. FINDINGS: The bowel gas pattern is unremarkable. There are no dilated loops of small bowel to suggest an obstruction. Redemonstration of the 3 mm stone within the right ureterovesical junction junction . This is similar to the prior study. No additional ureteral calculi identified. The renal shadows ar e mostly obscured by overlying bowel gas. No pneumoperitoneum or pneumatosis. IMPRESSION: Unchanged appearance of the 3 mm calculus at the right ureterovesical junction. ACT 112: Negative or not required by law. Electronically signed by: Panda Watkins M.D. 04/17/2020 10:08 AM
[2020-04-17] MEDS ORDERED: HYDROmorphone INJ 0.5 MG/0.5 ML SYR IV PRN (10:17)
--- NOTE | 2020-04-17 10:34 | History & Physical Report ---
Date of Service April 17, 2020 History of Present Illness Primary Care Provider: Harper Tolentino MD Allergies Allergy/AdvReac Type Severity Reaction Status Date / Time Sulfa (Sulfonamide Allergy Intermediate HIVES Verified 04/17/20 08:45 Antibiotics) Home Medications Home Medications Medication Instructions Recorded Confirmed Type oxycodone 5 mg PO Q4H PRN #15 tab 04/14/20 04/17/20 Rx levothyroxine 100 mcg PO QAM 04/15/20 04/17/20 History tamsulosin 0.4 mg PO HS #30 cap 04/16/20 04/17/20 Rx acetaminophen [Tylenol Extra 1,000 mg PO QID PRN 04/17/20 04/17/20 History Strength] Past Med/Surg History Medical History (Updated 04/17/20 @ 00:03 by Sherlyn Pollard) Hypothyroidism Surgical History S/P D&C (status post dilation and curettage) S/P tonsillectomy Family History Denies family history of Ovarian cancer Prostate cancer Myocardial infarction Breast cancer Colorectal cancer Social History Smoking Status: Never smoker Hx Alcohol Use: Yes Hx Substance Use: No Preferred Language: Bengali Communication Ability: Effective Visual Impairment: No Limitations Hearing Ability: Normal 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 Beliefs That Will Affect Care: None marital status: Current Living Situation: Spouse current occupational status: employed 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 Feels Safe at Home: Yes Childhood Exposure to Second-Hand Smoke: Yes Dental Care, Regularly: No Physical Activity Frequency: Daily Seatbelt Use: always Sunscreen Use: Yes Results & Data Results & Data ([facility]) Vital Signs (Past 12 Hours) Vital Signs Temp Pulse Resp BP Pulse Ox 04/17/20 10:00 54 L 18 123/76 90 04/17/20 09:30 57 L 24 155/72 H 100 04/17/20 09:00 57 L 20 145/79 H 100 04/17/20 08:52 54 L 22 144/71 H 100 04/17/20 08:47 66 20 144/71 H 100 04/17/20 08:25 36.7 C 65 22 152/79 H 100 Code Status & VTE Plan VTE Prophylaxis Plan VTE Prophylaxis will be ordered: No PG Care Time/CCT Total # of Minutes Spent Total Time Spent with Patient: Total time spent is greater than 50% in coordination of care (as documented) at patient's floor/unit and/or counseling patient: Coding
--- NOTE | 2020-04-17 11:05 | History & Physical Report ---
Date of Service April 17, 2020 Assessment & Plan (1) Nephrolithiasis: Patient has a 3 mm obstructive stone She is received Dilaudid in the ED with some improvement of her pain Toradol will be ordered Patient is anticipated to go to the OR later today for placement of stent Continue supportive care Urology consult (2) Hypothyroidism: Continue home dose of levothyroxine at 100 mcg daily TSH on 04/15/2020 was 3.4 Further management as an outpatient (3) Anemia: Patient with heavy menses last week Ferrous sulfate ordered Follow daily labs No active bleeding Hemodynamically stable (4) Bradycardia: Patient with a current rate of 54 bpm I suspect this of this is her normal rate Would recommend outpatient follow-up with cardiology (5) DVT prophylaxis: No chemical prophylaxis due to probable surgery later today for stent placement Encourage ambulation as tolerated Anticipate discharge later today or tomorrow Please refer to Dr. Hudson's addendum for further recommendations. History of Present Illness Primary Care Provider: Harper Tolentino MD Attending: Dr. Hudson This is a 44-year-old female that was admitted on 04/15/2020 with ureteral obstruction with a 3 mm stone. She was admitted for pain control and concern for urosepsis. She did well during the course of her hospitalization and was discharged yesterday anticipating that her 3 mm stone would pass on its own. The patient states that she was straining all of her urine and has not seen the stone. KUB this morning confirms presence of 3 mm stone with no movement since 15 April. Patient chief complaint at this point is pain and nausea and vomiting with 3 episodes of vomiting this morning. She initially presented with pain 10 out of 10 and was given 1 mg of Dilaudid and pain improved with 6 out of 10. She was just given another half milligram of Dilaudid. Nausea is currently controlled. She denies any fever or chills. She has no rigors. She has no chest pain or tightness. She has no other acute complaints. Patient does have a past medical history of hypothyroidism and no other significant history. On admission and in review of ER records, she was incidentally found to be bradycardic. She currently has a rate of 54. She was on telemetry with no acute events. She has no awareness of arrhythmia, tachyarrhythmia, or palpitations. She has no chest pain or tightness. Allergies Allergy/AdvReac Type Severity Reaction Status Date / Time Sulfa (Sulfonamide Allergy Intermediate HIVES Verified 04/17/20 08:45 Antibiotics) Home Medications Home Medications Medication Instructions Recorded Confirmed Type oxycodone 5 mg PO Q4H PRN #15 tab 04/14/20 04/17/20 Rx levothyroxine 100 mcg PO QAM 04/15/20 04/17/20 History tamsulosin 0.4 mg PO HS #30 cap 04/16/20 04/17/20 Rx acetaminophen [Tylenol Extra 1,000 mg PO QID PRN 04/17/20 04/17/20 History Strength] Past Med/Surg History Medical History Anemia Bradycardia Hydronephrosis Hypothyroidism Nephrolithiasis Surgical History S/P D&C (status post dilation and curettage) S/P tonsillectomy Family History Denies family history of Ovarian cancer Prostate cancer Myocardial infarction Breast cancer Colorectal cancer Social History Smoking Status: Never smoker Hx Alcohol Use: Yes Hx Substance Use: No Preferred Language: Latvian Communication Ability: Effective Visual Impairment: No Limitations Hearing Ability: Normal Yard Switcher Required: No Beliefs That Will Affect Care: None marital status: Current Living Situation: Spouse current occupational status: employed 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 Other Information That Helps Us Care for You: No Feels Safe at Home: Yes Safety Concerns: Feels Safe At This Time Childhood Exposure to Second-Hand Smoke: Yes Dental Care, Regularly: No Physical Activity Frequency: Daily Seatbelt Use: always Sunscreen Use: Yes Review of Systems Review of Systems: All systems reviewed & are unremarkable except as noted in HPI & below Physical Exam Physical Exam: GENERAL : No acute distress EYES: No icterus, gaze conjugate NOSE: No evidence of epistaxis MOUTH: No lesions or candidiasis NECK: Supple LUNGS: CTA B/L, no wheezes, rales or rhonchi HEART: Regular, rate controlled ABDOMEN: Soft, NT, ND, BS Present EXTREMITIES: No LE edema, pedal pulses intact NEURO: A&OX3 Results & Data Results & Data ([facility]) Vital Signs (Past 12 Hours) Vital Signs Temp Pulse Resp BP Pulse Ox 04/17/20 10:30 56 L 19 122/73 90 04/17/20 10:00 54 L 18 123/76 90 04/17/20 09:30 57 L 24 155/72 H 100 04/17/20 09:00 57 L 20 145/79 H 100 04/17/20 08:52 54 L 22 144/71 H 100 04/17/20 08:47 66 20 144/71 H 100 04/17/20 08:25 36.7 C 65 22 152/79 H 100 Laboratory Results 04/17/20 08:35 04/17/20 08:35 INR on 04/15/2020 was 1.1 PT was 11.3 Diagnostic Findings KUB HISTORY: distal R ureteral stone, right flank pain COMPARISON: KUB 04/16/2020. FINDINGS: The bowel gas pattern is unremarkable. There are no dilated loops of small bowel to suggest an obstruction. Redemonstration of the 3 mm stone within the right ureterovesical junction junction. This is similar to the prior study. No additional ureteral calculi identified. The renal shadows are mostly obscured by overlying bowel gas. No pneumoperitoneum or pneumatosis. IMPRESSION: Unchanged appearance of the 3 mm calculus at the right ureterovesical junction. Electronically signed by: Panda Watkins M.D. 04/17/2020 10:08 AM Code Status & VTE Plan Code Status Level I: Full resuscitation VTE Prophylaxis Plan VTE Prophylaxis will be ordered: No Reason for no VTE drug order: Contraindicated Supervising Physician Co-Signing Physician Notes I personally saw and examined the patient. I verified all ontiveros points and agree with LUCIA Calderon with the following exceptions and/or additions: 44-year-old female presents to the ER due to worsening right-sided flank pain with associated nausea and vomiting after recent diagnosis of right-sided kidney stone 04/14, return for overnight stay from 04/15-04/16 - discharged without intervention as she was no longer having any pain and not septic. Returns today due to recurrent pain. No fevers or chills. O/E - right mild CVA tenderness, HS1+2, no murmurs, Abdo SNT, Chest CTAB Right ureterolithiasis - urology consult, tamsulosin, IV fluids, strain urine, NPO Iron deficiency anemia - suspected to be longstanding due to heavy periods. Recommend gynecology follow-up (she was already in the process of doing this). Continue ferrous sulfate 325 mg twice daily as prescribed during her last admission. Follow-up with PCP for repeat CBC in 4 weeks. PG Care Time/CCT Total # of Minutes Spent Total Time Spent with Patient: Total time spent is greater than 50% in coordination of care (as documented) at patient's floor/unit and/or counseling patient: 40 minutes Coding Level of Care Code 49574 Initial Inpt Care Lvl 2 Diagnoses Nephrolithiasis N20.0 Hypothyroidism E03.9 Hypothyroidism type: acquired Anemia D64.9 Bradycardia R00.1 DVT prophylaxis Z29.9 Time Spent (min) 40 (1) Hypothyroidism Hypothyroidism type: acquired Qualified Code(s): E03.9 - Hypothyroidism, unspecified
[2020-04-17] MEDS ORDERED: ONDANSETRON INJ 2 MG/ML 2 ML VIAL IV PRN (11:41)
[2020-04-17] MEDS ORDERED: MoRPHine SULFATE 2 MG/ML CARP IV PRN (11:41)
[2020-04-17] MEDS ORDERED: ACETAMINOPHEN 500 MG TAB PO PRN (11:41)
[2020-04-17] MEDS: D5W AND 1/2NSS + 20MEQ KCL 20 MEQ/1,000 ML BAG IV SCH ×2 (13:00→20:12)
--- NOTE | 2020-04-17 16:31 | Emergency Department Note ---
History of Present Illness General Chief complaint: Flank Pain Stated complaint: VOMITING, KIDNEY PAIN Time Seen by Provider: 04/17/20 08:29 Source: patient, family and RN notes reviewed Mode of arrival: ambulatory Limitations: no limitations History of Present Illness Provider complaint: Right lower quadrant pain, kidney stone Maximum Pain Intensity: 4 This patient is a 44-year-old female who presents the emergency department who complains of right lower quadrant abdominal pain. Patient states she was admitted to the hospital and discharged yesterday with a kidney stone on the right side. Upon review of records, no intervention was done. Patient states pain had largely improved however she woke up suddenly early this morning where sharp and stabbing pain. She denies any blood in the urine or fevers. She has vomited several times. She denies any history of kidney stones prior to this event. Home Medications Home Medications Medication Instructions Recorded Confirmed Type oxycodone 5 mg PO Q4H PRN #15 tab 04/14/20 04/17/20 Rx levothyroxine 100 mcg PO QAM 04/15/20 04/17/20 History tamsulosin 0.4 mg PO HS #30 cap 04/16/20 04/17/20 Rx acetaminophen [Tylenol Extra 1,000 mg PO QID PRN 04/17/20 04/17/20 History Strength] Allergies Allergy/AdvReac Type Severity Reaction Status Date / Time Sulfa (Sulfonamide Allergy Intermediate HIVES Verified 04/17/20 08:45 Antibiotics) Past Med/Surg History Medical History Anemia Bradycardia Hydronephrosis Hypothyroidism Nephrolithiasis Surgical History S/P D&C (status post dilation and curettage) S/P tonsillectomy Family History Denies family history of Ovarian cancer Prostate cancer Myocardial infarction Breast cancer Colorectal cancer Social History Smoking Status: Never smoker Hx Alcohol Use: Yes Hx Substance Use: No Preferred Language: Gabonese Communication Ability: Effective Visual Impairment: No Limitations Hearing Ability: Normal Assistant Athletic 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 and A total of 10 systems reviewed and were otherwise negative Physical Exam Vital Signs Vital Signs - 24 hr 04/17/20 08:25 04/17/20 08:47 04/17/20 08:52 Temperature 36.7 C Temperature Source Oral Pulse Rate 65 66 54 L Pulse Rate from SpO2 Sensor 55 L Pulse Rhythm Regular Pulse Strength Normal Respiratory Rate 22 20 22 Respiratory Effort / Characteristics Non-Labored Spontaneous Respiratory Depth Normal Respiratory Pattern Regular Blood Pressure 152/79 H 144/71 H 144/71 H Blood Pressure Mean 103 95 88 Blood Pressure Position Sitting Pulse Oximetry 100 100 100 Oxygen Delivery Method Room Air Sepsis Recent Fever Within 48 Hours No Sepsis New/Unexplained Change in Mental Status No Sepsis Action Taken by Nursing No Action Required 04/17/20 09:00 04/17/20 09:30 04/17/20 10:00 Temperature Temperature Source Pulse Rate 57 L 57 L 54 L Pulse Rate from SpO2 Sensor 57 L 58 L 55 L Pulse Rhythm Pulse Strength Respiratory Rate 20 24 18 Respiratory Effort / Characteristics Respiratory Depth Respiratory Pattern Blood Pressure 145/79 H 155/72 H 123/76 Blood Pressure Mean 84 98 91 Blood Pressure Position Pulse Oximetry 100 100 90 Oxygen Delivery Method Sepsis Recent Fever Within 48 Hours Sepsis New/Unexplained Change in Mental Status Sepsis Action Taken by Nursing 04/17/20 10:30 Temperature Temperature Source Pulse Rate 56 L Pulse Rate from SpO2 Sensor 59 L Pulse Rhythm Pulse Strength Respiratory Rate 19 Respiratory Effort / Characteristics Respiratory Depth Respiratory Pattern Blood Pressure 122/73 Blood Pressure Mean 92 Blood Pressure Position Pulse Oximetry 90 Oxygen Delivery Method Sepsis Recent Fever Within 48 Hours Sepsis New/Unexplained Change in Mental Status Sepsis Action Taken by Nursing Vital signs reviewed. General: Generally well-appearing 44-year-old female in significant discomfort. HEENT: No scleral icterus, PERRLA, neck supple. Atraumatic. Cardiovascular: Bradycardic but regular, no extra sounds Pulmonary: Clear to auscultation bilaterally, normal work of breathing. Abdomen: Soft, obese, mild right lower quadrant tenderness, nondistended, positive bowel sounds. Musculoskeletal: Atraumatic, no peripheral edema. Neurologic: Patient awake alert and oriented x 3 Skin: Warm, dry, no rash Course Administered Medications Potassium Chloride/Dextrose/Sod Cl (D5w And 1/2nss + 20meq Kcl) 20 meq in 1,000 mls @ 150 mls/hr IV .Q6H40M DAPHNIE Stop: 05/17/20 11:59 Last Admin: 04/17/20 13:00 Dose: 150 mls/hr Documented by: [id number] Discontinued Medications Hydromorphone HCl (Hydromorphone Inj 0.5 Mg/0.5 Ml Syr) 0.5 mg IV NOW STA Stop: 04/17/20 08:37 Last Admin: 04/17/20 08:48 Dose: 0.5 mg Documented by: [id number] Hydromorphone HCl (Hydromorphone Inj 0.5 Mg/0.5 Ml Syr) 0.5 mg IV NOW STA Stop: 04/17/20 09:13 Last Admin: 04/17/20 09:14 Dose: 0.5 mg Documented by: [id number] Hydromorphone HCl (Hydromorphone Inj 0.5 Mg/0.5 Ml Syr) 0.5 mg IV Q15M PRN PRN Reason: Pain Stop: 05/01/20 10:16 Last Admin: 04/17/20 10:44 Dose: 0.5 mg Documented by: [id number] Sodium Chloride (Nss 1000ml) 1,000 mls @ 999 mls/hr IV .Q1H1M ONE Stop: 04/17/20 09:36 Last Infusion: 04/17/20 09:50 Dose: 0 mls/hr Documented by: [id number] Admin: 04/17/20 08:48 Dose: 999 mls/hr Documented by: [id number] Ondansetron HCl (Ondansetron Inj 2 Mg/Ml 2 Ml Vial) 4 mg IV NOW STA Stop: 04/17/20 08:37 Last Admin: 04/17/20 08:48 Dose: 4 mg Documented by: [id number] Medical Decision Making Differential Diagnosis Differential diagnosis: Etiologies such as shingles, pyelonephritis/UTI, renal colic, appendicitis, diverticulitis, mesenteric ischemia, torsion, aortic pathology, infections, inflammatory bowel disease, bowel obstruction, PUD, biliary pathology, as well as others were entertained. Medical Records Attestation: I reviewed the patient's medical records. Home Medications Current Medication List: was personally reviewed by me Laboratory Data Attestation: I reviewed the patient's lab results. Result diagrams: 04/17/20 08:35 04/17/20 08:35 Lab Results 04/17/20 04/17/20 04/17/20 Range/Units 08:35 08:35 09:38 WBC 10.98 H (4.8-10.8) K/uL RBC 4.44 (4.2-5.4) M/uL Hgb 8.4 L (12.0-16.0) g/dL Hct 29.1 L (37-47) % MCV 65.5 L (80-100) fL MCH 18.9 L (25-34) pg MCHC 28.9 L (32-36) g/dL RDW Std Deviation 44.1 (36.4-46.3) fL RDW Coeff of Delta 18.6 H (11.5-14.5) % Plt Count 319 (130-400) K/uL MPV 9.2 (7.4-10.4) fL Immature Gran % (Auto) 0.3 % Neut % (Auto) 80.6 % Lymph % (Auto) 14.8 % Moffat % (Auto) 3.9 % Eos % (Auto) 0.2 % Baso % (Auto) 0.2 % Neut # (Auto) 8.86 H (1.4-6.5) K/uL Lymph # (Auto) 1.62 (1.2-3.4) K/uL M[place]at # (Auto) 0.43 (0.11-0.59) K/uL Eos # (Auto) 0.02 (0-0.5) K/uL Baso # (Auto) 0.02 (0-0.2) K/uL Immature Gran # (Auto) 0.03 H (0.00-0.02) K/uL Hypochromasia Present Microcytosis Present Ovalocytes 1+ Sodium 137 (136-145) mmol/L Potassium 3.4 L (3.5-5.1) mmol/L Chloride 104 (98-107) mmol/L Carbon Dioxide 21 (21-32) mmol/L Anion Gap 12.0 H (3-11) BUN 13 D (7-18) mg/dl Creatinine 0.85 (0.6-1.2) mg/dl Est Cr Clr Drug Dosing 104.7 ml/min Est GFR ( Amer) 96.6 Est GFR (Non-Af Amer) 83.3 BUN/Creatinine Ratio 15.2 (10-20) Glucose 124 H (70-99) mg/dl Calcium 8.8 (8.5-10.1) mg/dl Total Bilirubin 0.5 (0.2-1) mg/dl AST 14 L (15-37) U/L ALT 20 (12-78) U/L Alkaline Phosphatase 83 (45-117) U/L Total Protein 7.9 (6.4-8.2) gm/dl Albumin 4.0 (3.4-5.0) gm/dl Globulin 3.9 (2.5-4.0) gm/dl Albumin/Globulin Ratio 1.0 (0.9-2) Urine Color Yellow Urine Appearance Clear (Clear) Urine pH 8.5 H (4.5-7.5) Ur Specific [place] 1.010 (1.000-1.030) Urine Protein Negative (Negative) Urine Glucose (UA) Negative (Negative) Urine Ketones 1+ H (Negative) Urine Blood Negative (Negative) Urine Nitrite Negative (Negative) Urine Bilirubin Negative (Negative) Urine Urobilinogen Negative (Negative) Ur Leukocyte Esterase Trace H (Negative) Urine WBC (Auto) 1-5 (0-5) /hpf Urine RBC (Auto) 0-4 (0-4) /hpf U Hyaline Cast (Auto) 0 (0-5) /lpf U Epithel Cells (Auto) 20-30 H (0-5) /lpf Urine Bacteria (Auto) Negative (Negative) Imaging Data Radiologist's Impression: KUB HISTORY: distal R ureteral stone, right flank pain COMPARISON: KUB 04/16/2020. FINDINGS: The bowel gas pattern is unremarkable. There are no dilated loops of small bowel to suggest an obstruction. Redemonstration of the 3 mm stone within the right ureterovesical junction junction. This is similar to the prior study. No additional ureteral calculi identified. The renal shadows are mostly obscured by overlying bowel gas. No pneumoperitoneum or pneumatosis. IMPRESSION: Unchanged appearance of the 3 mm calculus at the right ureterovesical junction. ACT 112: Negative or not required by law. Electronically signed by: Panda Watkins M.D. 04/17/2020 10:08 AM Dictated: 04/17/20 1007 Transcribed: 04/17/20 1007 Blood Pressure Blood Pressure Findings: Elevated blood pressure Blood Pressure Disposition: elevated BP felt to be situational MDM Narrative This patient was evaluated and appeared to be in significant discomfort. IV access was obtained and laboratory work was drawn. The patient was placed on the rn cardiac rehab noted to be in a sinus rhythm at 65 bpm. She was hydrated with normal saline solution, given several doses of IV Dilaudid for pain control. She was medicated with IV Zofran. KUB was performed and reveals a 3 mm distal ureteral stone. UA is not infected. Patient's creatinine is normal at 0.85. I did speak with urology, LIZA Bone under Dr. Richards who will evaluate the patient for definitive management. Patient will be evaluated by the hospitalist service for admission and further management. Patient is aware of the plan and agrees. Impression & Plan Right distal ureteral calculus Discharge Plan Visit Data Chief Complaint: Flank Pain Stated Complaint: VOMITING, KIDNEY PAIN ED Provider: Dede Salmon Discharge Problem: Right distal ureteral calculus Patient Disposition: Admitted As Inpatient Discharge Instructions Interventions: ED Discharge Assessment Last Done: 04/17/20 11:20
--- NOTE | 2020-04-17 18:37 | Urology Consultation ---
Date of Consultation April 17, 2020 Assessment & Plan (1) Nephrolithiasis: Right distal ureteral stone NPO at NM for planned cysto, URS, LL, stent consent on the chart if she passes the stone overnight, we will certainly cancel the case - but otherwise plan on the OR History of Present Illness Attending Physician: Bari Hudson MD History of Present Illness 44y/o female - presenting to the ER/hospital multiple times in the past week with right groin/flank pain and imaging showing an extreme distal R ureteral stone - currently feeling ok, but has had intermittent symptoms throughout the day no fevers no chills minor nausea with the episodes of pain has not seen any stone fragments pass yet Allergies Allergy/AdvReac Type Severity Reaction Status Date / Time Sulfa (Sulfonamide Allergy Intermediate HIVES Verified 04/17/20 08:45 Antibiotics) Home Medications Home Medications Medication Instructions Recorded Confirmed Type oxycodone 5 mg PO Q4H PRN #15 tab 04/14/20 04/17/20 Rx levothyroxine 100 mcg PO QAM 04/15/20 04/17/20 History tamsulosin 0.4 mg PO HS #30 cap 04/16/20 04/17/20 Rx acetaminophen [Tylenol Extra 1,000 mg PO QID PRN 04/17/20 04/17/20 History Strength] Patient History Medical History Anemia Bradycardia Hydronephrosis Hypothyroidism Nephrolithiasis Surgical History S/P D&C (status post dilation and curettage) S/P tonsillectomy Family History Denies family history of Ovarian cancer Prostate cancer Myocardial infarction Breast cancer Colorectal cancer Social History Smoking Status: Never smoker Hx Alcohol Use: Yes Hx Substance Use: No Preferred Language: Citizen Of [place] Communication Ability: Effective Visual Impairment: No Limitations Hearing Ability: Normal Supervisor Tumbling And Rolling Required: No Beliefs That Will Affect Care: None marital status: Current Living Situation: Spouse current occupational status: employed 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 Other Information That Helps Us Care for You: No Feels Safe at Home: Yes Safety Concerns: Feels Safe At This Time Childhood Exposure to Second-Hand Smoke: Yes Dental Care, Regularly: No Physical Activity Frequency: Daily Seatbelt Use: always Sunscreen Use: Yes Review of Systems Constitutional: no fever, no chills and no fatigue Eyes: no worsening vision Ear, Nose, Mouth, Throat: no facial pain and no pain with swallowing Respiratory: no cough and no dyspnea Cardiovascular: no chest pain and no palpitations Gastrointestinal: no abdominal pain, no nausea and no vomiting Genitourinary: no dysuria, no difficulty urinating, no urinary frequency and no hematuria Musculoskeletal: no back pain Integumentary: no rash and no urticaria Neurologic: no gait abnormality and no unsteadiness Psychiatric: no behavioral changes and no depression Endocrine: no fatigue Physical Exam Constitutional: well developed and well nourished Neck: neck nontender Respiratory: normal respiratory effort; no respiratory distress and does not use accessory muscles Cardiovascular: Rate/Rhythm: regular rate Vessels: radial pulses present Extremities: no edema Gastrointestinal (Abdomen): Inspection/Auscultation: abdomen normal to inspection Percussion/Palpation: abdomen soft; abdomen nontender and no guarding Musculoskeletal: Head/Neck/Chest: normocephalic and head atraumatic Extremities: extremities normal to inspection Skin: no rashes and no lesions Trauma: no evidence of skin trauma Neurologic: awake; not obtunded Speech / Cognition: normal speech Motor/Sensory: no tremor Psychiatric: Orientation: alert and oriented x 3 Lymphatic: no lymphadenopathy Results & Data ([facility]) Vital Signs (Past 12 Hours) Vital Signs Temp Pulse Pulse Resp BP BP Pulse Ox 04/17/20 15:15 36.9 C 61 18 110/70 96 04/17/20 11:44 37.4 C 67 18 123/69 100 04/17/20 10:30 56 L 19 122/73 90 04/17/20 10:00 54 L 18 123/76 90 04/17/20 09:30 57 L 24 155/72 H 100 04/17/20 09:00 57 L 20 145/79 H 100 04/17/20 08:52 54 L 22 144/71 H 100 04/17/20 08:47 66 20 144/71 H 100 04/17/20 08:25 36.7 C 65 22 152/79 H 100 PG Care Time/CCT Total # of Minutes Spent Total Time Spent with Patient: Total time spent is greater than 50% in coordination of care (as documented) at patient's floor/unit and/or counseling patient: Coding Level of Care Code 58585 Inpt Consult Level 3 Diagnoses Nephrolithiasis N20.0
[2020-04-17] MEDS ORDERED: TAMSULOSIN HCL 0.4 MG CAP PO SCH (21:00)
[2020-04-18] MEDS: D5W AND 1/2NSS + 20MEQ KCL 20 MEQ/1,000 ML BAG IV SCH ×2 (03:08→10:18)
[2020-04-18] MEDS ORDERED: LEVOTHYROXINE SODIUM 100 MCG TABLET PO SCH (06:30)
[2020-04-18] MEDS ORDERED: CIPROFLOXACIN 400MG / 200ML D5W IV ONE (06:58)
--- NOTE | 2020-04-18 07:00 | Urology Progress Note ---
Date of Service April 18, 2020 Assessment & Plan (1) Right distal ureteral calculus: plan for OR - cysto, URS, Laser litho, stent - consent on chart Admission and Anticipated Discharge Date Admission Date: April 17, 2020 Subjective no stone passage overnight intermittent symptoms ready for OR Physical Exam Constitutional: well developed and well nourished Neck: neck nontender Respiratory: normal respiratory effort; no respiratory distress and does not use accessory muscles Cardiovascular: Rate/Rhythm: regular rate Vessels: radial pulses present Extremities: no edema Gastrointestinal (Abdomen): Inspection/Auscultation: abdomen normal to inspection Percussion/Palpation: abdomen soft; abdomen nontender and no guarding Musculoskeletal: Head/Neck/Chest: normocephalic and head atraumatic Extremities: extremities normal to inspection Skin: no rashes and no lesions Trauma: no evidence of skin trauma Neurologic: awake; not obtunded Speech / Cognition: normal speech Motor/Sensory: no tremor Psychiatric: Orientation: alert and oriented x 3 Lymphatic: no lymphadenopathy Results & Data ([facility]) Vital Signs (Past 12 Hours) Vital Signs Temp Pulse Pulse Resp BP Pulse Ox 04/18/20 06:36 37.0 C 83 16 135/80 100 04/17/20 23:42 37.1 C 82 17 124/76 96 PG Care Time/CCT Total # of Minutes Spent Total Time Spent with Patient: Total time spent is greater than 50% in coordination of care (as documented) at patient's floor/unit and/or counseling patient: Coding Level of Care Code 07827 Subseq Hosp Care Lvl 2 Diagnoses Right distal ureteral calculus N20.1
[2020-04-18] MEDS ORDERED: ONDANSETRON INJ 2 MG/ML 2 ML VIAL ONE (07:03)
[2020-04-18] MEDS ORDERED: LIDOCAINE HCL 2% 2 ML VIAL/AMP(20MG/ML) INFIL ONE (07:03)
[2020-04-18] MEDS ORDERED: PROPOFOL IV EMULSION 10 MG/ML 20 ML VIAL IV ONE (07:03)
[2020-04-18] MEDS ORDERED: fentaNYL citrate 100 MCG/2 ML VIAL ONE (07:03)
[2020-04-18] MEDS ORDERED: DEXAMETHASONE SOD INJ 4 MG/ML VIAL ONE (07:03)
[2020-04-18] MEDS ORDERED: MIDAZOLAM HCL 1 MG/ML 2ML VIAL ONE (07:03)
--- NOTE | 2020-04-18 07:22 | Anesthesiology Consultation ---
Date of Service April 18, 2020 Assessment & Plan Chart Review Chart Review: Acceptable Risk for Surgery and Patient NOT seen in Pre Admission Testing Consults Requested none ASA ASA3 Proposed Anesthesia Anesthesia Type: General Risk / Benefits Reviewed With: PT / POA / Parent / Guardian, Accepts Plan and Informed Consent Obtained History Surgery Operation Date: 04/18/20 07:15 Proposed Procedures p Cystoscopy, Right Ureteroscopy, Laser Lithotripsy, Possible Stent Insertion - Jone Richards MD Height/Weight Height: 5 ft 7 in Weight: 103.9 kg Allergies Allergy/AdvReac Type Severity Reaction Status Date / Time Sulfa (Sulfonamide Allergy Intermediate HIVES Verified 04/17/20 08:45 Antibiotics) Medications Home Medications Medication Instructions Recorded Confirmed Last Taken oxycodone 5 mg PO Q4H PRN #15 tab 04/14/20 04/17/20 04/15/20 05:30 5 mg levothyroxine 100 mcg PO QAM 04/15/20 04/17/20 04/17/20 tamsulosin 0.4 mg PO HS #30 cap 04/16/20 04/17/20 Unknown acetaminophen [Tylenol Extra 1,000 mg PO QID PRN 04/17/20 04/17/20 04/17/20 05:00 Strength] 1000 mg Active Medications Generic Name Dose Route Start Last Admin Trade Name Freq PRN Reason Stop Dose Admin Potassium Chloride/Dextrose/Sod Cl 20 meq in 1,000 mls @ 150 mls/hr 04/17/20 12:00 04/18/20 06:38 D5w And 1/2nss + 20meq Kcl IV 05/17/20 11:59 Infused .Q6H40M DAPHNIE Infusion Levothyroxine Sodium 100 mcg 04/18/20 06:30 04/18/20 06:03 Levothyroxine Sodium 100 Mcg Tablet PO 05/18/20 06:29 100 mcg DAILYBB DAPHNIE Administration Tamsulosin HCl 0.4 mg 04/17/20 21:00 04/17/20 22:11 Tamsulosin Hcl 0.4 Mg Cap PO 05/17/20 20:59 Not Given HS DAPHNIE NPO Date Last Intake of Fluids: 04/17/20 Time Last Intake of Fluids: 23:59 Date Last Intake of Solids: 04/17/20 Time Last Intake of Solids: 23:59 Past Medical History Medical History Anemia Bradycardia Hydronephrosis Hypothyroidism Nephrolithiasis Exercise / Class Metabolic Activity II 4-5 Yardwork/Stairs/Walk up hill Past Family History Family History Denies family history of Ovarian cancer Prostate cancer Myocardial infarction Breast cancer Colorectal cancer Past Surgical History Surgical History S/P D&C (status post dilation and curettage) S/P tonsillectomy Past Anesthesia History No Hx of Anesthesia Complications and No Family Hx of Anesthesia Complications History of PONV No Hx of PONV and No Hx of Motion Sickness Social History Smoking Status: Never smoker Hx Alcohol Use: Yes alcohol intake frequency: holidays/special occasions only Hx Substance Use: No substance use type: does not use Physical Exam Vital Signs Last Vital Signs Temp 36.7 C 04/18/20 07:08 Pulse 67 04/18/20 07:08 Resp 16 04/18/20 07:08 BP 139/92 04/18/20 07:08 Pulse Ox 97 04/18/20 07:08 Constitutional + obese ENMT Mouth: + small oral opening; no dentition abnormality Thyromental Distance: < 3.5 Finger Breadths Mallampati Class: II Neck normal visual inspection and trachea midline; neck extension not limited Respiratory normal respiratory effort Auscultation: lungs clear to auscultation bilaterally Cardiovascular Rate/Rhythm: regular rate and regular rhythm Heart Sounds: no murmur Vessels: no carotid bruit Musculoskeletal Spine: normal cervical ROM Extremities: extremities normal to inspection Neurologic moves all extremities Motor/Sensory: no sensory deficit Psychiatric Orientation: alert and oriented x 3 Testing Laboratory Results 04/17/20 08:35 04/17/20 08:35 Urine Color Yellow 04/17/20 09:38 Urine Appearance Clear (Clear) 04/17/20 09:38 Urine pH 8.5 (4.5-7.5) H 04/17/20 09:38 Ur Specific [place] 1.010 (1.000-1.030) 04/17/20 09:38 Urine Protein Negative (Negative) 04/17/20 09:38 Urine Glucose (UA) Negative (Negative) 04/17/20 09:38 Urine Ketones 1+ (Negative) H 04/17/20 09:38 Urine Nitrite Negative (Negative) 04/17/20 09:38 Ur Leukocyte Esterase Trace (Negative) H 04/17/20 09:38 Urine WBC (Auto) 1-5 /hpf (0-5) 04/17/20 09:38 Urine RBC (Auto) 0-4 /hpf (0-4) 04/17/20 09:38 U Hyaline Cast (Auto) 0 /lpf (0-5) 04/17/20 09:38 U Epithel Cells (Auto) 20-30 /lpf (0-5) H 04/17/20 09:38 Urine Bacteria (Auto) Negative (Negative) 04/17/20 09:38 Electrocardiogram Date: 04/15/20 Findings: + NSR @ (at 64)
[2020-04-18] MEDS ORDERED: FERROUS SULFATE 325 MG TAB PO SCH (08:00)
[2020-04-18] MEDS ORDERED: fentaNYL citrate 100 MCG/2 ML VIAL IV PRN (08:18)
[2020-04-18] MEDS ORDERED: ATROPINE SULFATE 0.1 MG/ML 10ML SYR IV PRN (08:18)
[2020-04-18] MEDS ORDERED: LABETALOL HCL IV 5 MG/ML 20ML IV PRN (08:18)
[2020-04-18] MEDS ORDERED: NALOXONE HCL 0.4 MG/1 ML VIAL/CARP IV PRN (08:18)
[2020-04-18] MEDS ORDERED: PROMETHAZINE HCL 12.5 MG in SODIUM CHLORIDE 0.9% 50 ML IV PRN (08:18)
[2020-04-18] MEDS ORDERED: FLUMAZENIL 0.1 MG/1 ML 10 ML VIAL IV PRN (08:18)
[2020-04-18] MEDS ORDERED: ePHEDrine sulfate 50 MG/ML AMP IV PRN (08:18)
[2020-04-18] MEDS ORDERED: ONDANSETRON INJ 2 MG/ML 2 ML VIAL IV PRN (08:18)
[2020-04-18] MEDS ORDERED: KETOROLAC 30 MG/ML VIAL ONE (08:22)
--- NOTE | 2020-04-18 08:26 | Operative Report ---
PG Post Operative Report Pre & Post Diagnosis Operation Date: 04/18/20 07:15 Pre: distal right ureteral stone Post: distal right ureteral stone I identified the patient and participated in the time-out.: Yes Procedure Operation Date: 04/18/20 07:15 Actual Procedures p Cystoscopy, Right Ureteroscopy, stone extraction - Jone Richards MD Surgeon Bobby Richards MD Wood Grinder Operator none Estimated Blood Loss 0 Findings Consistent with Post-Op Diagnosis Specimens stone for chemical analysis Description of Procedure The patient was identified in the preoperative holding area, appropriate informed consents were reviewed and completed and the patient was transferred to the operative suite. Upon arrival, appropriate antibiotics and anesthesia were administered and the patient was placed in dorsal lithotomy position and prepped and draped in sterile fashion. To begin the case to pass a 22 [place]oan cystoscope with 30 degree lens. Inspection revealed healthy-appearing mucosa without stones within the bladder. She has mild squamous metaplasia of the trigone. Her left and right ureteral orifices appear to be in orthotopic position. There was some mounding of tissue immediately lateral and posterior to the right UO. I wondered if there was duplication but could not find any opening consistent with a repeat UO. In turn I turned my attention to the easily identified UO and cannulated it with a sensor wire. I felt mild resistance in the distal ureter. I then passed a semirigid ureteroscope alongside the wire. I did not really require a second wire to help guide this ureteroscope into the ureter. There was a stone impacted approximately 2 mm above the UO. I was able to free it from inside of impaction. it actually turned out to be 3 separate pieces that had been impacted. I was able to successfully irrigate all 3 of these pieces out of the ureter. The remainder of the ureter appeared to be quite healthy with some dilation proximal to the location of the stone. The site of impaction also did not appear to be particularly inflamed. I elected to leave her without a stent given the lack of inflammation. I irrigated the pieces out of the bladder and passed them off the table for chemical analysis. She was reversed of anesthesia and taken to the recovery room in stable condition. There were no complications. I attest to the content of the Intraoperative Record and any orders documented therein. Any exceptions are noted below.
--- NOTE | 2020-04-18 08:50 | Fluoroscopy Report ---
FL KUB CLINICAL HISTORY: Right-sided kidney stone. COMPARISON STUDY: KUB 04/17/2020. FLUOROSCOPY TIME: 1 second. FINDINGS: A single fluoroscopic spot images of the abdomen demonstrates a guidewire within the right ureter. IMPRESSION: Fluoroscopy provided for a right-sided kidney stone extraction. ACT 112: Negative or not required by law. Electronically signed by: Panda Watkins M.D. 04/18/2020 8:48 AM
--- NOTE | 2020-04-18 09:09 | Anesthesiology Progress Note ---
Date of Service April 18, 2020 Anesthesia Post Procedure Vital Signs Vital Signs: Temp Pulse Pulse Pulse Pulse Resp BP 04/18/20 08:55 70 16 04/18/20 08:45 78 16 04/18/20 08:35 36.1 C L 90 20 04/18/20 07:08 36.7 C 67 16 04/18/20 06:36 37.0 C 83 16 04/17/20 23:42 37.1 C 82 17 04/17/20 15:15 36.9 C 61 18 04/17/20 11:44 37.4 C 67 18 04/17/20 10:30 56 L 19 122/73 04/17/20 10:00 54 L 18 123/76 04/17/20 09:30 57 L 24 155/72 H BP Pulse Ox 04/18/20 08:55 119/82 99 04/18/20 08:45 122/75 99 04/18/20 08:35 108/73 98 04/18/20 07:08 139/92 97 04/18/20 06:36 135/80 100 04/17/20 23:42 124/76 96 04/17/20 15:15 110/70 96 04/17/20 11:44 123/69 100 04/17/20 10:30 90 04/17/20 10:00 90 04/17/20 09:30 100 Pain Intensity Right Flank: Pain Intensity: 4 Transfer of Care Handoff Completed per policy Notes Mental Status: alert / awake / arousable Patient Amnestic to Procedure: Yes Nausea / Vomiting: adequately controlled Pain: adequately controlled Airway Patency, RR, SpO2: stable & adequate BP & HR: stable & adequate Hydration State: stable & adequate Anesthetic Complications: no major complications apparent
--- NOTE | 2020-04-18 14:06 | Discharge Summary ---
Date of Service April 18, 2020 Admission HPI Per Admitting Provider Attending: Dr. Hudson This is a 44-year-old female that was admitted on 04/15/2020 with ureteral obstruction with a 3 mm stone. She was admitted for pain control and concern for urosepsis. She did well during the course of her hospitalization and was discharged yesterday anticipating that her 3 mm stone would pass on its own. The patient states that she was straining all of her urine and has not seen the stone. KUB this morning confirms presence of 3 mm stone with no movement since 15 April. Patient chief complaint at this point is pain and nausea and vomiting with 3 episodes of vomiting this morning. She initially presented with pain 10 out of 10 and was given 1 mg of Dilaudid and pain improved with 6 out of 10. She was just given another half milligram of Dilaudid. Nausea is currently controlled. She denies any fever or chills. She has no rigors. She has no chest pain or tightness. She has no other acute complaints. Patient does have a past medical history of hypothyroidism and no other significant history. On admission and in review of ER records, she was incidentally found to be bradycardic. She currently has a rate of 54. She was on telemetry with no acute events. She has no awareness of arrhythmia, tachyarrhythmia, or palpitations. She has no chest pain or tightness. Admission Exam Per Admitting Provider GENERAL : No acute distress EYES: No icterus, gaze conjugate NOSE: No evidence of epistaxis MOUTH: No lesions or candidiasis NECK: Supple LUNGS: CTA B/L, no wheezes, rales or rhonchi HEART: Regular, rate controlled ABDOMEN: Soft, NT, ND, BS Present EXTREMITIES: No LE edema, pedal pulses intact NEURO: A&OX3 Principal Diagnosis Ureterolithiasis Discharge Exam GENERAL : No acute distress EYES: No icterus, gaze conjugate NOSE: No evidence of epistaxis MOUTH: No lesions or candidiasis NECK: Supple LUNGS: CTA B/L, no wheezes, rales or rhonchi HEART: Regular, rate controlled ABDOMEN: Soft, NT, ND, BS Present EXTREMITIES: No LE edema, pedal pulses intact NEURO: A&OX3 Discharge Data Allergies Allergy/AdvReac Type Severity Reaction Status Date / Time Sulfa (Sulfonamide Allergy Intermediate HIVES Verified 04/17/20 08:45 Antibiotics) Consultations 04/17/20 11:41 Consult Urology Routine Procedures Performed Operation Date: 04/18/20 07:15 Actual Procedures p Cystoscopy, Right Ureteroscopy, stone extraction - Jone Richards MD Ordered Studies 04/18/20 07:00 FL fluoroscopy <1hr Routine 04/18/20 07:15 FL KUB Routine 04/18/20 07:17 US - OR guided needle placemen Stat Hospital Course (1) Nephrolithiasis: Patient has a 3 mm obstructive stone She is received Dilaudid in the ED with some improvement of her pain Toradol was ordered Urology was consulted an patient seen by Dr. Jori Richards Patient taken to the OR 04/18/2020. She was found to have 3 impacted stones. These were able to be removed and no stent was required. Postoperatively patient had no reports of pain Patient discharged home for outpatient follow-up with urology (2) Hypothyroidism: Continue home dose of levothyroxine at 100 mcg daily TSH on 04/15/2020 was 3.4 Further management as an outpatient (3) Anemia: Patient with heavy menses last week Ferrous sulfate ordered and will be continued as an outpatient No active bleeding Hemodynamically stable (4) Bradycardia: Patient with a rate of 54 bpm at the time of admission I suspect this of this is her normal rate Would recommend outpatient follow-up with cardiology No arrhythmias while on telemetry on her previous admission No indication for echocardiogram or other work-up this admission (5) DVT prophylaxis: No chemical prophylaxis due to probable surgery later today for stent placement Encourage ambulation as tolerated Please refer to Dr. Montano's addendum for further recommendations and corrections. Total Time Total Time Spent Total Time Spent (In Minutes): 40 Total Time Includes: Examination of the Patient, Discharge Planning, Medication Reconciliation and Communication With Other Providers Discharge Plan Discharge Items Patient Disposition: Home - Self-Care Reason For Visit: URETEROLITHIASIS Discharge Diagnosis: Ureterolithiasis Activity: Resume your previous activity Lifting: Gradually increase as tolerated Bathing: No limitations Sexual Activity: After one week Exercise/Sports: Gradually increase as tolerated Driving/Machine Use: Resume 1 day after discharge Weightbearing: Full weightbearing Non-emergency contact: Primary Care Provider Call non-emergency contact if: your symptoms worsen, your pain is worsening and you have a fever Follow-up/Referrals: Harper Tolentino MD [Primary Care Provider] - Diet: Heart Healthy Addtl Attending Provider Instructions: Patient advised to contact her primary care physician if she notices any fever or increased pain. Patient also advised to alert her primary care physician about concern for bradycardia. Pending Studies at Discharge: Yes Studies:: Kidney stone composition Stand-Alone Forms: [facility] Medications and DC Order Prescriptions: New ferrous sulfate 325 mg (65 mg iron) Tablet,Delayed Release (Dr/Ec) 325 mg PO BIDM Qty: 30 RF: 0 Continued acetaminophen [Tylenol Extra Strength] 500 mg Tablet 1,000 mg PO QID PRN (Reason: Pain) RF: 0 levothyroxine 100 mcg tablet 100 mcg PO QAM RF: 0 Discontinued oxycodone 5 mg tablet 5 mg PO Q4H PRN (Reason: pain) Qty: 15 RF: 0 tamsulosin 0.4 mg Capsule 0.4 mg PO HS Qty: 30 RF: 0 Discharge Orders: Discharge Order (Routine); Ordered 04/18/20 Ordered By: Matias Ramirez/Other Patient Handouts: Iron Supplements Admission Data Admit Date/Time: 04/17/20 10:31 Attending Provider: Bari Hudson Admit Provider: Bari Hudson Primary Care Provider: Harper Tolentino Other Providers: Travon Hernandez Other Interventions: Discharge Summary Assessment (RN) Last Done: 04/18/20 12:05 Supervising Physician Co-Signing Physician Notes I supervised Matias Calderon PA-C on this patient's care. I examined the patient today independently of him. I discussed the plan of care with him with the plan being as written in his note except for any following changes/exceptions: None. Doing well post-procedure. No further pain. Eating and drinking without nausea or vomiting. Will follow up urology outpatient. Coding Level of Care Code D/C Day Management >30 mins Diagnoses Nephrolithiasis N20.0 Hypothyroidism E03.9 Hypothyroidism type: acquired Anemia D64.9 Bradycardia R00.1 DVT prophylaxis Z29.9 Time Spent (min) 40
[2020-04-24 13:16] LABS: Component 2 DNR; Source URETERAL STONE
== END 2020-04-18 15:04 | disposition home or self-care (01) | DRG 670 ==
LOC: ED 08:22 → 3N 10:31 → INTOOBSV 10:31 → 3N 11:20